=== PATIENT | female | born 1980 | race Caucasian/White ===

== ENCOUNTER 2017-06-05 22:30 | Emergency (ER) | payer OTHER ==
[2017-06-05 22:51] VITALS: BP 122/72; BMI 38.4
--- NOTE | 2017-06-06 00:10 | PDOC ---
History of Present Illness - General Chief Complaint: Asthma Stated Complaint: PAIN History Source: Patient Exam Limitations: No Limitations - History of Present Illness Travel History: No Initial Comments: 06/06/17 00:09 37 yo F with h/o renal colic c/o left sided flank pain x1 week with nausea but denies fever/chills. Pain described as 5/10 intermittent sharpness radiating to the groin. There are no alleviating or exacerbating factors. Patient denies vomiting, headaches, chest pain, shortness of breath, abdominal pains, urinary symptoms: Frequency/urgency/hesitancy, hematuria. Patient states it feels similar to her previous renal colic episodes. Patient states she's been having this for approximately one week and was hoping the pain was subsiding on its own by passing her kidney stones. Timing/Duration: reports: intermittent Quality: reports: sharpness Abdominal Pain Onset Location: reports: flank (right) Past History - Past Medical History Allergies/Adverse Reactions: Allergies Allergy/AdvReac Type Severity Reaction Status Date / Time amcinonide [From Cyclocort] Allergy Mild Hives Verified 05/26/16 03:38 cefaclor [From Ceclor] Allergy Mild Hives Verified 05/26/16 03:38 Home Medications: Ambulatory Orders Albuterol Sulfate Inhaler - [Ventolin HFA Inhaler -] 1 - 2 inh PO Q4H #1 inhaler 10/25/13 Anemia: No Asthma: Yes Cancer: No Cardiac Disorders: No CVA: No COPD: No CHF: No Dementia: No Diabetes: No GI Disorders: No Disorders: No HTN: No Hypercholesterolemia: No Kidney Stones: Yes Liver Disease: No Seizures: No Thyroid Disease: No - Surgical History Abdominal Surgery: Yes (gastric sleeve) Appendectomy: No Cardiac Surgery: No Cholecystectomy: Yes (2010) GI Surgery: Yes Lung Surgery: No Neurologic Surgery: No Orthopedic Surgery: No - Immunization History Td Vaccination: Yes Immunization Up to Date: Yes - Suicide/Smoking/Psychosocial Hx Smoking Status: No Smoking History: Never smoked Have you smoked in the past 12 months: No Number of Cigarettes Smoked Daily: 0 Hx Alcohol Use: No Drug/Substance Use Hx: No Substance Use Type: None Hx Substance Use Treatment: No Review of Systems - Review of Systems Able to Perform ROS?: Yes Comments:: 06/06/17 00:29 CONSTITUTIONAL: Absent: fever, chills, diaphoresis, generalized weakness, malaise, loss of appetite HEENT: Absent: rhinorrhea, nasal congestion, throat pain, throat swelling, difficulty swallowing, mouth swelling, ear pain, eye pain, visual Changes CARDIOVASCULAR: Absent: chest pain, loss of consciousness, palpitations, irregular heart rate, peripheral edema RESPIRATORY: Absent: cough, shortness of breath, dyspnea with exertion, orthopnea, wheezing, stridor, hemoptysis GASTROINTESTINAL: Absent: abdominal pain, abdominal distension, nausea, vomiting, diarrhea, constipation, melena, hematochezia GENITOURINARY: +right flank pain Absent: dysuria, frequency, urgency, hesitancy, hematuria, genital pain MUSCULOSKELETAL: Absent: myalgia, arthralgia, joint swelling SKIN: Absent: rash, itching, pallor HEMATOLOGIC/IMMUNOLOGIC: Absent: easy bleeding, easy bruising, lymphadenopathy, frequent infections ENDOCRINE: Absent: unexplained weight gain, unexplained weight loss, heat intolerance, cold intolerance NEUROLOGIC: Absent: headache, focal weakness or paresthesias, dizziness, unsteady gait, seizure, mental status changes, bladder or bowel incontinence PSYCHIATRIC: Absent: anxiety, depression, suicidal or homicidal ideation, hallucinations. Is the patient limited Maltese proficient: No *Physical Exam - Vital Signs Last Vital Signs Temp Pulse Resp BP Pulse Ox 122/72 94 L 06/05/17 22:49 06/05/17 22:49 - Physical Exam Comments: 06/06/17 00:29 GENERAL: Well developed, well nourished. Awake and alert. No acute distress. HEENT: Normocephalic, atraumatic. PERRLA, EOMI. No conjunctival pallor. Sclera are non- icteric. Moist mucous membranes. Oropharynx is clear. NECK: Supple. Full ROM. No JVD. Carotid pulses 2+ and symmetric, without bruits. No thyromegaly. No lymphadenopathy. CARDIOVASCULAR: Regular rate and rhythm. No murmurs, rubs, or gallops. Distal pulses are 2+ and symmetric. PULMONARY: No evidence of respiratory distress. Lungs clear to auscultation bilaterally. No wheezing, rales or rhonchi. ABDOMINAL: Soft. Non-tender. Non-distended. No rebound or guarding. No organomegaly. Normoactive bowel sounds. MUSCULOSKELETAL +right CVAT Normal range of motion at all joints. No bony deformities or tenderness. EXTREMITIES: No cyanosis. No clubbing. No edema. No calf tenderness. SKIN: Warm and dry. Normal capillary refill. No rashes. No jaundice. NEUROLOGICAL: Alert, awake, appropriate. Cranial nerves 2-12 intact. No deficits to light touch and temperature in face, upper extremities and lower extremities. No motor deficits in the in face, upper extremities and lower extremities. Normoreflexic in the upper and lower extremities. Normal speech. Toes are down- going bilaterally. Gait is normal without ataxia. PSYCHIATRIC: Cooperative. Good eye contact. Appropriate mood and affect. *DC/Admit/Observation/Transfer Diagnosis at time of Disposition: eloped - Discharge Dispostion Disposition: ELOPED - Referrals Referrals: Gary Stafford MD [Primary Care Provider] - - Patient Instructions - Post Discharge Activity
[2017-06-06 01:13] LABS: URINE APPEARANCE CLOUDY; URINE BILIRUBIN NEGATIVE (NEGATIVE); URINE BLOOD NEGATIVE (NEGATIVE); URINE COLOR LTYELLOW; URINE GLUCOSE (UA) NEGATIVE (NEGATIVE); URINE KETONE NEGATIVE (NEGATIVE); URINE NITRITE NEGATIVE (NEGATIVE); URINE PROTEIN NEGATIVE (NEGATIVE); URINE UROBILINOGEN NEGATIVE mg/dL (0.2-1.0)
[2017-06-06 01:16] LABS: HCG,QUALITATIVE URINE NEGATIVE
[2017-06-06 01:18] LABS: URINE LEUK ESTERASE 1+ (NEGATIVE)
[2017-06-06 01:20] LABS: EPI CELLS FEW /HPF (FEW); URINE BACTERIA RARE /hpf (NONE SEEN); URINE MUCUS RARE
== END 2017-06-06 01:43 | disposition left against medical advice (07) ==
LOC: JER 22:30
DX: R10.32 Left lower quadrant pain (principal); Z87.442 Personal history of urinary calculi
CPT/HCPCS: 81003; 81015; 84703; 99282-25

== ENCOUNTER 2018-03-09 11:24 | Day surgery (SDC) | payer OTHER ==
[2018-03-09 12:13] VITALS: BMI 38.7
[2018-03-09 12:45] VITALS: TEMP 98.6
--- NOTE | 2018-03-09 13:13 | OP ---
DATE OF OPERATION: 03/09/2018 SURGEON: Cathy Pedraza MD PREOPERATIVE DIAGNOSIS: Stall in weight loss after prior vertical sleeve gastrectomy. POSTOPERATIVE DIAGNOSIS: Dilated gastric pouch/sleeve. PROCEDURES: Upper endoscopy, esophagogastroduodenoscopy. SPECIMENS: None. ESTIMATED BLOOD LOSS: 0 mL. ANESTHESIA: MAC. REASON FOR PROCEDURE: This is a 37-year-old female with a vertical sleeve gastrectomy done at a different institution. She lost approximately 70 pounds but had some stall in her weight loss. To further evaluate the anatomy, an upper endoscopy was requested and scheduled. The risks and benefits of the procedure were explained. These included bleeding, infection, injury to surrounding structures including the oral cavity, esophagus, GE junction, stomach, duodenum, intestine, perforation, stricture, LA, DVT, PE, and some other complications. She understood and signed informed consent. DESCRIPTION OF PROCEDURE: A time-out was performed. The patient was placed in the left lateral decubitus position. The scope was placed into the patient's mouth and inserted into the esophagus, EG junction, stomach. The entirety of the sleeve and gastric pouch was inspected. There was noted to be some dilated at the distal aspect of the sleeve and pouch. The stomach was then suctioned and the scope removed. RECOMMENDATION: Upper GI to further evaluate anatomy and possible revision of vertical sleeve gastrectomy. CATHY PEDRAZA M.D. [id number]
[2018-03-09 13:29] VITALS: BP 107/59; PULSE 71
== END 2018-03-09 13:29 | disposition home or self-care (01) ==
LOC: JASU-ENDO 11:24
PROVIDERS: ATTEND Surgery
PROC: 0DJ08ZZ Inspection of Upper Intestinal Tract, Via Natural or Artificial Opening Endoscopic (ICD-10-PCS; principal; 2018-03-09 12:45)
DX: E66.01 Morbid (severe) obesity due to excess calories (principal); Z98.84 Bariatric surgery status; K31.89 Other diseases of stomach and duodenum
CPT/HCPCS: 84703

== ENCOUNTER 2018-11-29 09:47 | Inpatient (IN) | payer OTHER | END 2018-11-30 14:42 | disposition home or self-care (01) | LOC: FM/S 09:47 ==

== ENCOUNTER 2018-12-12 07:14 | Emergency (ER) | payer OTHER ==
[2018-12-12 07:31] VITALS: BMI 36.7
[2018-12-12] MEDS ORDERED: SODIUM CHLORIDE 1,000 ML IV STA (07:53)
[2018-12-12] MEDS ORDERED: methylPREDNISolone NA SUCC 125 MG/2 ML VIAL IVPB ONE (07:53)
[2018-12-12] MEDS ORDERED: FAMOTIDINE 20 MG/50 ML IVPB 20 MG/50 ML MG IVPB ONE ×2 (07:53→08:01)
--- NOTE | 2018-12-12 07:53 | PDOC ---
History of Present Illness - General Chief Complaint: Allergic Reaction Stated Complaint: ALLERGIC REACTION Time Seen by Provider: 12/12/18 07:31 History Source: Patient Exam Limitations: No Limitations - History of Present Illness Initial Comments: 38 yo F presents with hives since yesterday. She states she recently had a gastric sleeve operation, is on a liquid diet. She did not have any new foods. She has been consistently drinking the same protein shake throughout. No new facial products. She states that yesterday she developed itching to her forehead , so she took benadryl. Then last night she developed swelling and itching to her eyelids, again took benadryl (last dose 50 mg last night at 11pm). The swelling and itching returned this morning, so she sought evaluation. Denies SOB , throat swelling, mouth lesions. No prior similar symptoms in the past. Past History - Past Medical History Allergies/Adverse Reactions: Allergies Allergy/AdvReac Type Severity Reaction Status Date / Time amcinonide [From Cyclocort] Allergy Mild Hives Verified 12/12/18 07:25 cefaclor [From Ceclor] Allergy Mild Hives Verified 12/12/18 07:25 Home Medications: Ambulatory Orders Albuterol Sulfate Inhaler - [Ventolin HFA Inhaler -] 1 - 2 inh PO Q4H PRN Fluticasone Propion/Salmeterol [Fluticasone-Salmeterol 500-50] 1 each IH HS Famotidine [Pepcid] 20 mg PO BID #60 tablet 11/29/18 predniSONE [Deltasone -] 40 mg PO DAILY #8 tablet 12/12/18 Anemia: No Asthma: Yes Cancer: No Cardiac Disorders: No CVA: No COPD: No CHF: No Dementia: No Diabetes: No GI Disorders: No Disorders: No HTN: No Hypercholesterolemia: No Kidney Stones: Yes Liver Disease: No Seizures: No Thyroid Disease: No - Surgical History Abdominal Surgery: Yes (gastric sleeve 2014,LOST 80 LBS,COMING FOR REVISION) Appendectomy: No Cardiac Surgery: No Cholecystectomy: Yes GI Surgery: Yes Lung Surgery: No Neurologic Surgery: No Orthopedic Surgery: No - Immunization History Td Vaccination: Yes Immunization Up to Date: Yes - Suicide/Smoking/Psychosocial Hx Smoking Status: No Smoking History: Never smoked Have you smoked in the past 12 months: No Number of Cigarettes Smoked Daily: 0 Hx Alcohol Use: No Drug/Substance Use Hx: No Substance Use Type: None Hx Substance Use Treatment: No Review of Systems - Review of Systems Able to Perform ROS?: Yes Comments:: GENERAL/CONSTITUTIONAL: No fever or chills. No weakness. HEAD, EYES, EARS, NOSE AND THROAT: No change in vision. No ear pain or discharge. No sore throat. MUSCULOSKELETAL: No joint or muscle swelling or pain. No neck or back pain. SKIN: +Rash. NEUROLOGIC: No headache, vertigo, loss of consciousness, or change in strength/ sensation. ENDOCRINE: No increased thirst. No abnormal weight change. HEMATOLOGIC/LYMPHATIC: No anemia, easy bleeding, or history of blood clots. ALLERGIC/IMMUNOLOGIC: +Hives. *Physical Exam - Vital Signs Last Vital Signs Temp Pulse Resp BP Pulse Ox 98.6 F 93 H 18 110/71 99 12/12/18 07:18 12/12/18 07:18 12/12/18 07:18 12/12/18 07:18 12/12/18 07:18 - Physical Exam Comments: GENERAL: Awake, alert, and fully oriented, in no acute distress HEAD: No signs of trauma EYES: PERRLA, EOMI, sclera anicteric, conjunctiva clear ENT: Auricles normal inspection, hearing grossly normal, nares patent, oropharynx clear without exudates. Moist mucosa. No intraoral lesions NECK: Normal ROM, supple, no lymphadenopathy, JVD, or masses LUNGS: Breath sounds equal, clear to auscultation bilaterally. No wheezes, and no crackles HEART: Regular rate and rhythm, normal S1 and S2, no murmurs, rubs or gallops ABDOMEN: Soft, nontender, normoactive bowel sounds. No guarding, no rebound. No masses EXTREMITIES: Normal range of motion, no edema. No clubbing or cyanosis. No cords, erythema, or tenderness NEUROLOGICAL: Cranial nerves II through XII grossly intact. Normal speech, normal gait. Motor and sensation intact SKIN: Warm, dry, normal turgor. +Urticarial rash to the elbows, neck, forehead, and periorbital area B/L. Medical Decision Making - Medical Decision Making 12/12/18 07:53 Pt with urticarial rash, unknown precipitating factor. Will give benadryl, steroids, and pepcid, as it did not resolve with benadryl alone. Once she improves, will DC with a short course of prednisone. 12/12/18 09:43 Pt resting comfortably, hives improving. Will cont to monitor. 12/12/18 10:36 Pt reassessed. No airway involvement. Has some itching but has improved. Will cont to monitor the swelling. 12/12/18 12:06 Second dose of benadryl has helped, patient with no additional hives at this point. She still has periorbital edema, which will improve with time as the steroids take effect. Stable for DC home. She states her son will pick her up. *DC/Admit/Observation/Transfer Diagnosis at time of Disposition: Allergic reaction Qualifiers: Encounter type: initial encounter Qualified Code(s): T78.40XA - Allergy, unspecified, initial encounter - Discharge Dispostion Disposition: HOME Condition at time of disposition: Stable Decision to Admit order: No - Prescriptions Prescriptions: predniSONE [Deltasone -] 40 mg PO DAILY #8 tablet - Referrals Referrals: Gary Stafford MD [Primary Care Provider] - - Patient Instructions Printed Discharge Instructions: DI for Hives, DI for General Allergic Reactions - Post Discharge Activity
[2018-12-12] MEDS ORDERED: methylPREDNISolone NA SUCC 125 MG/2 ML VIAL ONE (08:01)
[2018-12-12 11:19] VITALS: BP 119/88; PULSE 75; TEMP 98
== END 2018-12-12 12:44 | disposition home or self-care (01) ==
LOC: JER 07:14
PROC: 3E033GC Introduction of Other Therapeutic Substance into Peripheral Vein, Percutaneous Approach (ICD-10-PCS; principal; 2018-12-12)
PROC: 3E0337Z Introduction of Electrolytic and Water Balance Substance into Peripheral Vein, Percutaneous Approach (ICD-10-PCS; 2018-12-12)
DX: T78.40XA Allergy, unspecified, initial encounter (principal); X58.XXXA Exposure to other specified factors, initial encounter; Y93.89 Activity, other specified; Y92.89 Other specified places as the place of occurrence of the external cause; Z98.84 Bariatric surgery status
CPT/HCPCS: 84703; 96361; 96365; 96375; 96376; 99282-25; J7030

== ENCOUNTER 2018-12-13 19:44 | Emergency (ER) | payer OTHER ==
[2018-12-13 19:50] VITALS: BP 119/71; PULSE 87; TEMP 98.2; BMI 36.7
[2018-12-13] MEDS ORDERED: DEXAMETHASONE SOD PHOSPHATE 10 MG/1 ML VIAL IM ONE (20:29)
[2018-12-13] MEDS ORDERED: DEXAMETHASONE SOD PHOSPHATE 10 MG/1 ML VIAL ONE (20:35)
--- NOTE | 2018-12-13 20:51 | PDOC ---
History of Present Illness - General Chief Complaint: Hives Stated Complaint: ALLERGIC REACTION Time Seen by Provider: 12/13/18 20:23 History Source: Patient Exam Limitations: Clinical Condition - History of Present Illness Initial Comments: 12/13/18 20:46 Patient with no significant past medical history present with complaint of multiple hives to face, bilateral hands, neck and forehead. Patient was seen yesterday for symptoms and discharged home on by mouth prednisone for reported vomiting after taking prednisone and feels rashes getting worse. Denies choking sensation, shortness of breath. Denies lip or tongue swelling. Patient reported has been on liquid diet since gastric bypass 3 weeks ago and has not had anything new to be causing her ALLERGIC reaction. Denies any other symptoms Timing/Duration: 24 hours Past History - Past Medical History Allergies/Adverse Reactions: Allergies Allergy/AdvReac Type Severity Reaction Status Date / Time amcinonide [From Cyclocort] Allergy Mild Hives Verified 12/12/18 07:25 cefaclor [From Ceclor] Allergy Mild Hives Verified 12/12/18 07:25 Home Medications: Ambulatory Orders Albuterol Sulfate Inhaler - [Ventolin HFA Inhaler -] 1 - 2 inh PO Q4H PRN Fluticasone Propion/Salmeterol [Fluticasone-Salmeterol 500-50] 1 each IH HS Famotidine [Pepcid] 20 mg PO BID #60 tablet 11/29/18 predniSONE [Deltasone -] 40 mg PO DAILY #8 tablet 12/12/18 Hydrocortisone 2.5% Lotion [Hytone 2.5% Lotion -] 1 applic TP BID PRN 7 Days #1 bottle 12/13/18 Anemia: No Asthma: Yes Cancer: No Cardiac Disorders: No CVA: No COPD: No CHF: No Dementia: No Diabetes: No GI Disorders: No Disorders: No HTN: No Hypercholesterolemia: No Kidney Stones: Yes Liver Disease: No Seizures: No Thyroid Disease: No - Surgical History Abdominal Surgery: Yes (gastric sleeve 2014,LOST 80 LBS,COMING FOR REVISION) Appendectomy: No Cardiac Surgery: No Cholecystectomy: Yes GI Surgery: Yes Lung Surgery: No Neurologic Surgery: No Orthopedic Surgery: No - Immunization History Td Vaccination: Yes Immunization Up to Date: Yes - Suicide/Smoking/Psychosocial Hx Smoking Status: No Smoking History: Unknown if ever smoked Have you smoked in the past 12 months: No Number of Cigarettes Smoked Daily: 0 Hx Alcohol Use: No Drug/Substance Use Hx: No Substance Use Type: None Hx Substance Use Treatment: No Review of Systems - Review of Systems Able to Perform ROS?: Yes Is the patient limited Mongolian proficient: No Constitutional: No: Weakness HEENTM: No: Symptoms Reported Respiratory: No: Symptoms reported, Shortness of Breath, SOB with Exertion, SOB at Rest Cardiac (ROS): No: Symptoms Reported, Irregular Heart Rate, Palpitations ABD/GI: No: Nausea, Vomiting Integumentary: Yes: Symptoms Reported, See HPI, Pruritus, Rash Neurological: No: Dizziness All Other Systems: Reviewed and Negative *Physical Exam - Vital Signs Last Vital Signs Temp Pulse Resp BP Pulse Ox 98.2 F 87 20 119/71 97 12/13/18 19:47 12/13/18 19:47 12/13/18 19:47 12/13/18 19:47 12/13/18 19:47 - Physical Exam General Appearance: Yes: Nourished, Appropriately Dressed. No: Apparent Distress ED Treatment Course - Medications Given in the ED: ED Medications Discontinued Medications Generic Name Dose Route Start Last Admin Trade Name Freq PRN Reason Stop Dose Admin Dexamethasone Sodium Phosphate 10 mg 12/13/18 20:29 12/13/18 20:44 Decadron Injection - IM 12/13/18 20:30 10 mg ONCE ONE Administration Diphenhydramine HCl 50 mg 12/13/18 20:29 12/13/18 20:44 Benadryl Injection - IM 12/13/18 20:30 50 mg ONCE ONE Administration Medical Decision Making - Medical Decision Making 12/13/18 20:49 Patient with no significant past medical history present with complaint of multiple hives to face, bilateral hands, neck and forehead. Patient was seen yesterday for symptoms and discharged home on by mouth prednisone for reported vomiting after taking prednisone and feels rashes getting worse. Denies choking sensation, shortness of breath. Denies lip or tongue swelling. Patient reported has been on liquid diet since gastric bypass 3 weeks ago and has not had anything new to be causing her ALLERGIC reaction. Denies any other symptoms Exam significant for multiple urticarial rash, anterior neck, posterior side of bilateral ears, forearm bilateral hands and fingers without excoriations. Symptoms likely ALLERGIC dermatitis. Patient no acute distress. Decadron 10 mg by mouth IM and Benadryl 50 mg IM ordered for ALLERGIC reaction. Patient be discharged home to continue home prednisone and Pepcid for antihistamine with strict follow-up. Referral to dermatology given for follow-up *DC/Admit/Observation/Transfer Diagnosis at time of Disposition: Allergic reaction Qualifiers: Encounter type: subsequent encounter Qualified Code(s): T78.40XD - Allergy, unspecified, subsequent encounter - Discharge Dispostion Disposition: HOME Condition at time of disposition: Stable Decision to Admit order: No - Prescriptions Prescriptions: Hydrocortisone 2.5% Lotion [Hytone 2.5% Lotion -] 1 applic TP BID PRN 7 Days #1 bottle PRN Reason: rash - Referrals Referrals: Gary Stafford MD [Primary Care Provider] - Jennifer Rod MD [Staff Physician] - - Patient Instructions Additional Instructions: Continue with home prednisone as prescribed. Take home Pepcid twice a for antihistamine. Use prescribed hydrocortisone cream as needed for rash., To emergency room if worsening symptoms or shortness of breath or choking sensation otherwise follow-up referred dermatology - Post Discharge Activity
== END 2018-12-13 20:57 | disposition home or self-care (01) ==
LOC: JERFT 19:44
PROC: 3E023GC Introduction of Other Therapeutic Substance into Muscle, Percutaneous Approach (ICD-10-PCS; principal; 2018-12-13)
PROC: 3E0233Z Introduction of Anti-inflammatory into Muscle, Percutaneous Approach (ICD-10-PCS; 2018-12-13)
DX: L50.0 Allergic urticaria (principal); T78.40XD Allergy, unspecified, subsequent encounter
CPT/HCPCS: 96372; 99281-25; J1100

== ENCOUNTER 2020-03-03 01:31 | Emergency (ER) | payer OTHER ==
[2020-03-03 02:00] VITALS: TEMP 99; BMI 32.5
--- NOTE | 2020-03-03 02:06 | PDOC ---
Attending Attestation - Resident Resident Name: Kate Taylor - ED Attending Attestation I have performed the following: I have examined & evaluated the patient, The case was reviewed & discussed with the resident, I agree w/resident's findings & plan - HPI HPI: 03/03/20 03:03 Pt comes with abdominal pain - Physicial Exam PE: 03/03/20 03:04 Normal vitals afebrile Heart RRR lungs CTAB abd:soft NT ND flank:no pain neuro:normal exam ext:normal 03/03/20 21:25 Pt doesn't need further imaging or testing - Medical Decision Making 03/03/20 02:43 UA normal Hb is low MCV is low. Pt states that her HB is always low. 03/03/20 03:03 chemistry is normal 03/03/20 03:16 Pt tells me that she eats no fruits and no veggies. Likely constipated. 03/03/20 21:26 Pt has normal labs and she will be sent home with PMD outpatient f/u as needed. Discharge - Discharge Information Problems reviewed: Yes Clinical Impression/Diagnosis: Abdominal pain Qualifiers: Abdominal location: unspecified location Qualified Code(s): R10.9 - Unspecified abdominal pain Condition: Improved Disposition: HOME - Follow up/Referral Referrals: Gary Stafford MD [Primary Care Provider] - - Patient Discharge Instructions Patient Printed Discharge Instructions: DI for Abdominal Pain-Adult, DI for Iron Deficiency Anemia-Adult Additional Instructions: You were seen with R sided abdominal pain. Your labs are unconcerning, and your pain resolved without intervention. You were found to be anemic. Please ensure that you eat an iron rich diet. Follow up with your primary care doctor within one week. Return to the ER if you develop new or worsening symptoms. - Post Discharge Activity
--- NOTE | 2020-03-03 02:07 | PDOC ---
History of Present Illness - General Chief Complaint: Pain, Acute Stated Complaint: PAIN Time Seen by Provider: 03/03/20 01:46 - History of Present Illness Initial Comments: HPI: 03/03/20 02:03 39 yo F PMH asthma, gastric sleeve s/p revision 2019 (went from 300 to 190 lbs), s/p cholecystectomy 20+ years ago, C-sections X2, tubal ligation, L sided kidney stones requiring lithotripsy in the past, presenting from home with R sided abd pain and urinary frequency. States that she has had sharp R sided abd pain for the past week, more severe over the past 3 days (12/15, sharp), developed urinary frequency and odor without dysuria or hematuria today, prompting her to come in. Endorses nausea, one episode of vomiting yesterday. Has taken ibuprofen and acetaminophen with some relief. Denies LOWERY, CP, SOB, fevers/chills, constipatio n/diarrhea. LMP 02/11/2020. ROS: GENERAL/CONSTITUTIONAL: denies fever, chills, diaphoresis, generalized weakness, malaise, loss of appetite, weight change HEAD, EYES, EARS, NOSE AND THROAT: denies rhinorrhea, nasal congestion, throat pain, throat swelling NEUROLOGIC: denies headache, focal weakness, dizziness, unsteady gait, mental status changes, bladder or bowel incontinence CARDIOVASCULAR: denies chest pain, syncope, palpitations, irregular heart rate, lightheadedness, peripheral edema RESPIRATORY: denies cough, shortness of breath, dyspnea with exertion, wheezing GASTROINTESTINAL: endorses abdominal pain, nausea, vomiting. Denies abdominal distension, diarrhea, constipation, melena, hematochezia GENITOURINARY: endorses frequency. Denies dysuria, hematuria, flank pain, genital pain MUSCULOSKELETAL: denies myalgia, arthralgia, joint swelling, back pain, neck pa in SKIN: denies rash, itching, pallor HEMATOLOGIC/IMMUNOLOGIC: denies easy bleeding, easy bruising, lymphadenopathy, frequent infections ENDOCRINE: denies unexplained weight gain, unexplained weight loss, heat intolerance, cold intolerance PSYCHIATRIC: denies anxiety, depression, suicidal or homicidal ideation, hallucinations PE: Gen: well-developed, well-nourished, NAD Neuro: AAOX4, CN II-XII intact HEENT: atraumatic, normocephalic Neck: trachea midline, supple CV: regular rate, regular rhythm, no murmurs, rubs, or gallops Pulm: CTA b/l, no wheezing Abd: soft, non-distended, R mid abdominal tenderness MSK: full ROM, intact pulses Extr: no edema, no deformities Skin: warm, dry MDM: Concern for pancreatitis v gastritis v UTI v kidney stone. - CBC, CMP - UA - serum preg - lipase - reassess - consider CT abd/pelvis w/ contrast considering extensive surgical history v non con for stone, depending on UA results 03/03/20 02:33 Hgb 7.9, UA appears negative. Likely iron deficiency anemia; patient endorses eating very few fruits or vegetables. Will plan CT abd/pelvis with IV and PO contrast once Cr comes back. 03/03/20 02:44 Serum preg negative. 03/03/20 03:02 Cr wnl, will give PO and IV contrast, get CT. 03/03/20 03:16 Patient reassessed and now completely non-tender. Labs unconcerning. Will instead dc for further outpatient management. Past History - Medical History Allergies/Adverse Reactions: Allergies Allergy/AdvReac Type Severity Reaction Status Date / Time amcinonide [From Cyclocort] Allergy Mild Hives Verified 03/03/20 02:00 cefaclor [From Ceclor] Allergy Mild Hives Verified 03/03/20 02:00 Home Medications: Ambulatory Orders Albuterol Sulfate Inhaler - [Ventolin HFA Inhaler -] 1 - 2 inh PO Q4H PRN 0 11/22/18 Fluticasone/Salmeterol [Advair Hfa 115-21 Mcg Inhaler] 1 inh PO BID 11/26/19 Ondansetron [Zofran *Odt*] 4 mg SL TID PRN #12 od.tablet 11/27/19 Anemia: No Asthma: Yes Cancer: No Cardiac Disorders: No CVA: No COPD: No CHF: No Dementia: No Diabetes: No GI Disorders: No Disorders: No HTN: No Hypercholesterolemia: No Kidney Stones: Yes Liver Disease: No Seizures: No Thyroid Disease: No - Surgical History Abdominal Surgery: Yes (gastric sleeve 2014,LOST 80 LBS,COMING FOR REVISION) Appendectomy: No Cardiac Surgery: No Cholecystectomy: Yes GI Surgery: Yes Lung Surgery: No Neurologic Surgery: No Orthopedic Surgery: No - Reproductive History Is Patient Now?: No - Immunization History Td Vaccination: Yes TDAP Vaccination: Yes Immunization Up to Date: Yes - Psycho-Social/Smoking History Smoking Status: No Smoking History: Never smoked Have you smoked in the past 12 months: No Number of Cigarettes Smoked Daily: 0 Information on smoking cessation initiated: No - Substance Abuse Hx (Audit-C & DAST Scrn) How often the patient has a drink containing alcohol: Never Score: In Men: 4 or > Positive; In Women: 3 or > Positive: 0 Screen Result (Pos requires Nsg. Audit-10AR): Negative In the last yr the pt used illegal drug/Rx for NonMed reason: No Score: Yes response is considered Positive: 0 Screen Result (Positive result requires Nsg. DAST-10): Negative *Physical Exam - Vital Signs Last Vital Signs Temp Pulse Resp BP Pulse Ox 99.0 F 76 18 120/83 100 03/03/20 01:57 03/03/20 01:57 03/03/20 01:57 03/03/20 01:57 03/03/20 01:57 ED Treatment Course - LABORATORY CBC & Chemistry Diagram: 03/03/20 02:08 03/03/20 02:08 Discharge - Discharge Information Problems reviewed: Yes Clinical Impression/Diagnosis: Abdominal pain Qualifiers: Abdominal location: unspecified location Qualified Code(s): R10.9 - Unspecified abdominal pain Condition: Improved Disposition: HOME - Admission No - Follow up/Referral Referrals: Gary Stafford MD [Primary Care Provider] - - Patient Discharge Instructions Patient Printed Discharge Instructions: DI for Abdominal Pain-Adult, DI for Iron Deficiency Anemia-Adult Additional Instructions: You were seen with R sided abdominal pain. Your labs are unconcerning, and your pain resolved without intervention. You were found to be anemic. Please ensure that you eat an iron rich diet. Follow up with your primary care doctor within one week. Return to the ER if you develop new or worsening symptoms. - Post Discharge Activity
[2020-03-03] MEDS ORDERED: SODIUM CHLORIDE 1,000 ML IV STA (02:17)
[2020-03-03] MEDS ORDERED: ACETAMINOPHEN 1000 MG/100 ML VIAL (NON FORMULARY) IVPB ONE (02:17)
[2020-03-03 02:21] LABS: URINE APPEARANCE CLEAR; URINE BILIRUBIN NEGATIVE (NEGATIVE); URINE COLOR YELLOW; URINE GLUCOSE (UA) NEGATIVE (NEGATIVE); URINE KETONE NEGATIVE (NEGATIVE); URINE LEUK ESTERASE NEGATIVE (NEGATIVE); URINE NITRITE NEGATIVE (NEGATIVE); URINE PROTEIN NEGATIVE (NEGATIVE)
[2020-03-03 02:22] LABS: HEMATOCRIT 26.3 % (32.4-45.2); HEMOGLOBIN 7.9 GM/dL (10.7-15.3); MCHC 30.2 g/dl (32.0-36.0); MEAN CELL VOLUME 58.9 fl (80-96); MEAN PLT VOLUME 9.1 fl (7.5-11.1); PLATELET COUNT 310 K/MM3 (134-434); RBC 4.46 M/mm3 (3.60-5.2); RDW 20.9 % (11.6-15.6); WHITE BLOOD COUNT 7.4 K/mm3 (4.0-10.0)
[2020-03-03 02:28] LABS: MCH 17.8 pg (25.7-33.7)
[2020-03-03] MEDS ORDERED: KETOROLAC TROMETHAMINE 30 MG/1 ML VIAL IVPUSH ONE (02:29)
[2020-03-03] MEDS ORDERED: ACETAMINOPHEN INJECTION 100 ML IVPB ONE (02:30)
[2020-03-03] MEDS ORDERED: KETOROLAC TROMETHAMINE 30 MG/1 ML VIAL ONE (02:38)
[2020-03-03 02:59] LABS: ALBUMIN 3.3 g/dl (3.4-5.0); BILIRUBIN,TOTAL 0.4 mg/dL (0.2-1); BLOOD UREA NITROGEN 20.4 mg/dL (7-18); CALCIUM 8.6 mg/dL (8.5-10.1); CREATININE 0.7 mg/dL (0.55-1.3); POTASSIUM 4.1 mmol/L (3.5-5.1); TOT PROT 6.9 g/dl (6.4-8.2)
[2020-03-03 04:13] VITALS: BP 118/78; PULSE 68
[2020-03-03 07:59] LABS: ANISOCYTOSIS 3+
[2020-03-03 08:00] LABS: PLATELET ESTIMATE ADEQUATE
== END 2020-03-03 04:16 | disposition home or self-care (01) ==
LOC: JER 01:31
PROC: 3E0333Z Introduction of Anti-inflammatory into Peripheral Vein, Percutaneous Approach (ICD-10-PCS; principal; 2020-03-03)
PROC: 3E033GC Introduction of Other Therapeutic Substance into Peripheral Vein, Percutaneous Approach (ICD-10-PCS; 2020-03-03)
PROC: 3E0337Z Introduction of Electrolytic and Water Balance Substance into Peripheral Vein, Percutaneous Approach (ICD-10-PCS; 2020-03-03)
DX: R10.9 Unspecified abdominal pain (principal)
CPT/HCPCS: 36415; 80053; 81003; 83690; 84703; 85025; 87086; 99285-25; J0131

== ENCOUNTER 2020-03-12 04:54 | Day surgery (SDC) | payer OTHER ==
--- OUTSIDE RECORDS SUMMARY | 2020-03-02 13:54 | XMS ---
:1980 [facility] Providers Name Role Phone Chumaceiro Unavailable Unavailable Chumaceiro Unavailable Unavailable Chumaceiro Unavailable Unavailable Chumaceiro Unavailable Unavailable Chumaceiro Unavailable Unavailable Chumaceiro Unavailable Unavailable Chumaceiro Unavailable Unavailable Chumaceiro Unavailable Unavailable Re-disclosure Warning The records that you are about to access may contain information from federally- assisted alcohol or drug abuse programs. If such information is present, then the following federally mandated warning applies: This information has been disclosed to you from records protected by federal confidentiality rules (42 CFR part 2). The federal rules prohibit you from making any further disclosure of this information unless further disclosure is expressly permitted by the written consent of the person to whom it pertains or as otherwise permitted by 42 CFR part 2. A general authorization for the release of medical or other information is NOT sufficient for this purpose. The Federal rules restrict any use of the information to criminally investigate or prosecute any alcohol or drug abuse patient.The records that you are about to access may contain highly sensitive health information, the redisclosure of which is protected by Article 27-F of the [facility] Public Health law. If you continue you may haveaccess to information: Regarding HIV / AIDS; Provided by facilities licensed or operated by the [facility] Office of Mental Health; or Provided by the [facility] Office for People With Developmental Disabilities. If such information is present, then the following [facility] mandated warning applies: This information has been disclosed to you from confidential records which are protected by state law. State law prohibits you from making any further disclosure of this information without the specific written consent of the person to whom it pertains, or as otherwise permitted by law. Any unauthorized further disclosure in violation of state law may result in a fine or assisted sentence or both. A general authorization for the release of medical or other information is NOT sufficient authorization for further disclosure. Allergies and Adverse Reactions Type Description Substance Reaction Status Data Source(s ) Drug allergy CECLOR CECLOR:[id number] Active MEDGEN ([facility]) Encounters Encounter Providers Location Date Indications Data Source(s ) Attender: Gary 02/02/2020 MEDGEN ([facility] Chumaceiro 12:00:00 AM [facility], ) EDT Office Medications Medication Brand Start Product Dose Route Administrative Pharmacy [facility] Indications Reaction Description Data Name Date Form Instructions Instructions Source(s) Escitalopra ESCITA 06/30/ TABLET 30 complet ESCI TALOPRAM MEDGEN (St m 10 MG LOPRAM 2019 ed [facility] Oral Tablet :90197 12:00: Medi shivani, ESCITALOPRA 2 00 AM PC) [id number] EST ropinirole ROPINI 03/28/ TABLET 30 complet ROPIN IROLE MEDGEN (St 0.25 MG ROLE:3 2018 ed [facility] Oral Tablet 01941 12:00: Medic al, ROPINIROLE: 00 AM PC) 530888 EDT ropinirole ROPINI 03/28/ complet ROPINIR OLE MEDGEN (St 0.25 MG ROLE:3 2018 ed G[facility] Oral Tablet 99131 12:00: Medic al, ROPINIROLE: 00 AM PC) 229247 EDT Albuterol 1 ALBUTE 03/28/ complet ALBUTE ROL MEDGEN (St MG/ML ROL:2018 ed [facility] Inhalant 5314 12:00: Medical, Solution 00 AM ) ALBUTEROL:2 EDT 51715 Famotidine FAMOTI 03/28/ TABLET 30 complet FAMOT IDINE MEDGEN (St 40 MG Oral DINE:2 2019 ed [facility] Tablet 66786 12:00: Medical, FAMOTIDINE: 00 AM PC) 293002 EDT Fluticasone ADVAIR 05/20/ POWDER 3 complet ADVA IR MEDGEN (St propionate DISKUS 2019 ed DISKUS [facility] 0.5 :48836 12:00: Medical, MG/ACTUAT / 91 00 AM PC) salmeterol EDT 0.05 MG/ACTUAT Dry Powder Inhaler [Advair] ADVAIR DISKUS:[id number] [id number] montelukast PAULETTE 08/09/ TABLET 30 complet TAMMY ELUKAST MEDGEN (St 10 MG Oral UKAST: 2019 ed [facility] Tablet [id number] 12:00: Medical, MONTELUKAST 00 AM PC) :[id number] EST Albuterol VENTOL 08/09/ AEROSOL 1 complet BETH EMILIANO HFA MEDGEN (St 0.09 IN 2019 ed [facility] MG/ACTUAT HFA:13 12:00: Medica l, Metered 56704 00 AM PC) Dose EST Inhaler [Ventolin] VENTOLIN HFA:[id number] Melatonin 3 MELATO 30/ TABLET 30 complet ECHO TONIN MEDGEN (St MG Oral MIRIAN:19 2017 ed [facility] Tablet 9163 12:00: Medical, MELATONIN:1 00 AM PC) 27371 EDT Prednisone predni 2 complet Jose Raul t 20 MG Oral SONE ed Kait Tablet 20 mg Medical predniSONE Tablet Center 20 mg , Tablet, Ordere Ordered By: d By: geneva Mondragon MDDirection SaintJ s: 2 tablet izzy, oral daily MDDire ctions : 2 tablet oral daily Zolpidem zolpid complet Saint tartrate 5 em 5 ed Kait MG Oral mg Medical Tablet Tablet Center zolpidem 5 mg Tablet 200 ACTUAT albute complet ProAir HF A Saint Albuterol rol ed Kait 0.09 sulfat Medical MG/ACTUAT e Center Metered (ProAi Dose r HFA) Inhaler 90 mcg [ProAir] HFA albuterol Aeroso sulfate l (ProAir Inhale HFA) 90 mcg r HFA Aerosol Inhaler isoniazid isonia complet Saint 300 MG Oral zid ed Kait Tablet 300 mg Medical isoniazid Tablet Center 300 mg Tablet fluticasone complet Saint 50 ed Kait mcg/actuati Medical on Center spray,suspe nsion 14 ACTUAT flutic complet Advair Faisal nt Fluticasone asone- ed Diskus Jatin phs propionate salmet Medical 0.25 emil Center MG/ACTUAT / (Advai salmeterol r 0.05 Diskus MG/ACTUAT ) 250 Dry Powder mcg-50 Inhaler mcg/Do [Advair] se fluticasone bliste -salmeterol r with (Advair device Diskus) 250 mcg-50 mcg/Dose blister with device Insurance Providers Payer name Policy type Policy ID Covered Covered libertarian's Policy P ciarra / Coverage libertarian ID relationship to Ramírez Inf ormation type ramírez [employer]USTIN [employer] [id number] SP [id number] NON CAP [place] [id number] 1 [id number] HEALTHCARE COMMUNITY PLAN [facility] [id number] 1 [id number] [facility] [id number] ESSENTIAL PLAN 1 2 Problems, Conditions, and Diagnoses Code Display Name Description Problem Type Effective Data Sour ce(s) Dates N63.11 Unspecified lump in UNSPECIFIED LUMP Problem 02/02/2020 MEDGEN (St the right breast, IN THE RIGHT 12:00:00 AM [facility] upper outer BREAST, UPPER T Medical, P C) quadrant OUTER QUADRANT F43.21 Adjustment disorder ADJUSTMENT Problem 06/30/2019 MEDGE N (St with depressed mood DISORDER WITH 12:00:00 AM [facility] DEPRESSED MOOD [facility] Medical, P C) D50.9 Iron deficiency IRON DEFICIENCY Problem 03/28/2019 MEDG EN (St anemia, unspecified ANEMIA, 12:00:00 AM [facility] UNSPECIFIED T Medical, ) J45.30 Mild persistent MILD PERSISTENT Problem 03/28/2019 MEDG EN (St asthma, ASTHMA, 12:00:00 AM [facility] uncomplicated UNCOMPLICATED T Medical, ) G47.01 Insomnia due to INSOMNIA DUE TO Problem 03/28/2019 MEDG EN (St medical condition MEDICAL CONDITION 12:00:00 AM [facility], ) K21.9 Gastro-esophageal GASTRO-ESOPHAGEAL Problem 03/28/2019 MEDGEN (St reflux disease REFLUX DISEASE 12:00:00 AM [facility] without esophagitis WITHOUT EDT Medic al, ) ESOPHAGITIS G25.81 Restless legs RESTLESS LEGS Problem 03/28/2019 MEDGEN ( St syndrome SYNDROME 12:00:00 AM [facility], ) E66.9 Obesity, OBESITY, Problem 12/15/2018 MEDGEN (St unspecified UNSPECIFIED 12:00:00 AM [facility], ) 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 12/15/2018 MEDGEN (St urticaria URTICARIA 12:00:00 AM [facility], ) Z01.818 Encounter for other ENCOUNTER FOR Problem 11/08/2018 ME DGEN (St preprocedural OTHER 12:00:00 AM [facility] examination PREPROCEDURAL EDT Medical, P C) EXAMINATION J45.41 Moderate persistent MODERATE Problem 10/25/2018 MEDGE N (St asthma with (acute) PERSISTENT ASTHMA 12:00:00 AM [facility] exacerbation WITH (ACUTE) EDT Medical, P C) EXACERBATION E55.9 Vitamin D VITAMIN D Problem 10/18/2018 MEDGEN (St deficiency, DEFICIENCY, 12:00:00 AM [facility] unspecified UNSPECIFIED ED Medical, ) D50.8 Other iron OTHER IRON Problem 10/18/2018 MEDGEN (St deficiency anemias DEFICIENCY ANEMIAS 12:00:00 AM [facility], ) M25.00 Hemarthrosis, HEMARTHROSIS, Problem 10/18/2018 MEDGEN ( St unspecified joint UNSPECIFIED JOINT 12:00:00 AM [facility], ) M79.2 Neuralgia and NEURALGIA AND Problem 08/09/2018 MEDGEN ( St neuritis, NEURITIS, 12:00:00 AM [facility] unspecified UNSPECIFIED [facility], ) E66.01 Morbid (severe) MORBID (SEVERE) Problem 08/09/2018 MEDG EN (St obesity due to OBESITY DUE TO 12:00:00 AM [facility] excess calories EXCESS CALORIES EST [facility], ) E66.8 Other obesity OTHER OBESITY Problem 08/09/2018 MEDGEN ( St 12:00:00 AM [facility], ) J45.40 Moderate persistent MODERATE Problem 08/09/2018 MEDGE N (St asthma, PERSISTENT ASTHMA, 12:00:00 AM [facility] uncomplicated UNCOMPLICATED EST Medical, ) G47.33 Obstructive sleep OBSTRUCTIVE SLEEP Problem 08/09/2018 MEDGEN (St apnea (adult) APNEA (ADULT) 12:00:00 AM [facility] (pediatric) (PEDIATRIC) [facility], ) G47.30 Sleep apnea, SLEEP APNEA, Problem 08/09/2018 MEDGEN (St unspecified UNSPECIFIED 12:00:00 AM [facility], ) B35.1 Tinea unguium TINEA UNGUIUM Problem 08/09/2018 MEDGEN ( St 12:00:00 AM [facility], ) 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/06/2018 MEDGEN (St tuberculosis OF TUBERCULOSIS 12:00:00 AM [facility], ) J45.20 Mild intermittent MILD INTERMITTENT Problem 04/06/2018 MEDGEN (St asthma, ASTHMA, 12:00:00 AM [facility] uncomplicated UNCOMPLICATED [facility] Medical, ) G47.00 Insomnia, INSOMNIA, Problem 04/06/2018 MEDGEN (St unspecified UNSPECIFIED 12:00:00 AM [facility], ) F41.9 Anxiety disorder, ANXIETY DISORDER, Problem 04/06/2018 MEDGEN (St unspecified UNSPECIFIED 12:00:00 AM [facility], ) Surgeries/Procedures Procedure Description Date Indications Data Source(s) Documentation of current 02/02/2020 MED GEN ([facility] medications (procedure) 12:00:00 AM HANNAH yin, ) OFFICE OUTPATIENT VISIT 02/02/2020 MEDG EN ([facility] 15 [facility]00[facility] Documentation of current 08/08/2019 MED GEN ([facility] medications (procedure) 12:00:00 AM EST Sam yin, ) Documentation of current 08/08/2019 MED GEN ([facility] medications (procedure) 12:00:00 AM EST Sam yin, ) OFFICE OUTPATIENT VISIT 08/08/2019 MEDG EN ([facility] 15 MINUTES 12:00:00 AM [facility], ) Documentation of current 06/30/2019 MED GEN ([facility] medications (procedure) 12:00:00 AM EST Sam yin, ) Documentation of current 06/30/2019 MED GEN ([facility] medications (procedure) 12:00:00 AM EST Sam yin, PC) Documentation of current 06/30/2019 MED GEN ([facility] medications (procedure) 12:00:00 AM EST Sam yin, PC) Documentation of current 06/30/2019 MED GEN ([facility] medications (procedure) 12:00:00 AM EST Sam yin, PC) Documentation of current 06/30/2019 MED GEN ([facility] medications (procedure) 12:00:00 AM EST Sam yin, PC) OFFICE OUTPATIENT VISIT 06/30/2019 MEDG EN ([facility] 15 MINUTES 12:00:00 AM NICK Veras, PC) Documentation of current 03/28/2019 MED GEN ([facility] medications (procedure) 12:00:00 AM EDT Sam yin, PC) Documentation of current 03/28/2019 MED GEN ([facility] medications (procedure) 12:00:00 AM EDT Sam yin, PC) Documentation of current 03/28/2019 MED GEN ([facility] medications (procedure) 12:00:00 AM EDT Sam yin, PC) Documentation of current 03/28/2019 MED GEN ([facility] medications (procedure) 12:00:00 AM EDT Sam yin, PC) Documentation of current 03/28/2019 MED GEN ([facility] medications (procedure) 12:00:00 AM EDT Sam yin, PC) Documentation of current 03/28/2019 MED GEN ([facility] medications (procedure) 12:00:00 AM EDT Sam yin, PC) Documentation of current 03/28/2019 MED GEN ([facility] medications (procedure) 12:00:00 AM EDT Sam yin, PC) Documentation of current 03/28/2019 MED GEN ([facility] medications (procedure) 12:00:00 AM EDT aSm yin, PC) Documentation of current 03/28/2019 MED GEN ([facility] medications (procedure) 12:00:00 AM EDT Sam yin, PC) Documentation of current 03/28/2019 MED GEN ([facility] medications (procedure) 12:00:00 AM EDT Sam yin, PC) Documentation of current 03/28/2019 MED GEN ([facility] medications (procedure) 12:00:00 AM EDT Sam yin, PC) Documentation of current 03/28/2019 MED GEN ([facility] medications (procedure) 12:00:00 AM EDT edical, PC) Documentation of current 03/28/2019 MED GEN ([facility] medications (procedure) 12:00:00 AM EDT edical, PC) Documentation of current 03/28/2019 MED GEN ([facility] medications (procedure) 12:00:00 AM EDT edical, PC) Documentation of current 03/28/2019 MED GEN ([facility] medications (procedure) 12:00:00 AM EDT edical, PC) Documentation of current 03/28/2019 MED GEN ([facility] medications (procedure) 12:00:00 AM EDT edical, PC) OFFICE OUTPATIENT VISIT 03/28/2019 MEDG EN ([facility] 25 MINUTES 12:00:00 AM [facility] Medical, ) BRIEF EMOTIONAL BEHAVIOR 03/28/2019 MED GEN ([facility] 12:00:00 AM ED Medical, ) COLLECTION VENOUS BLOOD 03/28/2019 MEDG EN ([facility] VENIPUNCTURE 12:00:00 AM [facility] Medical, ) OFFICE OUTPATIENT VISIT 12/15/2018 MEDG EN ([facility] 15 MINUTES 12:00:00 AM ED Medical, ) Documentation of current 11/08/2018 MED GEN ([facility] medications (procedure) 12:00:00 AM EDT elizabethical, ) Documentation of current 11/08/2018 MED GEN ([facility] medications (procedure) 12:00:00 AM EDT elizabethical, PC) Documentation of current 11/08/2018 MED GEN ([facility] medications (procedure) 12:00:00 AM EDT edical, PC) Documentation of current 11/08/2018 MED GEN ([facility] medications (procedure) 12:00:00 AM EDT edical, PC) OFFICE OUTPATIENT VISIT 11/08/2018 MEDG EN ([facility] 25 MINUTES 12:00:00 AM [facility] Medical, ) Documentation of current 10/25/2018 MED GEN ([facility] medications (procedure) 12:00:00 AM EDT edical, PC) Documentation of current 10/25/2018 MED GEN ([facility] medications (procedure) 12:00:00 AM EDT Sam yin, ANA) Documentation of current 10/25/2018 MED GEN ([facility] medications (procedure) 12:00:00 AM EDT Sam yin PC) Documentation of current 10/25/2018 MED GEN ([facility] medications (procedure) 12:00:00 AM EDT Sam yin PC) Documentation of current 10/25/2018 MED GEN ([facility] medications (procedure) 12:00:00 AM EDT Sam yni PC) Documentation of current 10/25/2018 MED GEN ([facility] medications (procedure) 12:00:00 AM EDT Sam yin, PC) Documentation of current 10/25/2018 MED GEN ([facility] medications (procedure) 12:00:00 AM EDT Sam yin, ANA) OFFICE OUTPATIENT VISIT 10/25/2018 MEDG EN ([facility] 25 MINUTES 12:00:00 AM ED Medical, PC) OFFICE OUTPATIENT VISIT 10/18/2018 MEDG EN ([facility] 15 MINUTES 12:00:00 AM ED Medical, PC) COLLECTION VENOUS BLOOD 10/18/2018 MEDG EN ([facility] VENIPUNCTURE 12:00:00 AM ED Medical, PC) Documentation of current 08/09/2018 MED GEN ([facility] medications (procedure) 12:00:00 AM ANA Parnell) Documentation of current 08/09/2018 MED GEN ([facility] medications (procedure) 12:00:00 AM NICK yin PC) Documentation of current 08/09/2018 MED GEN ([facility] medications (procedure) 12:00:00 AM NICK yin PC) Documentation of current 08/09/2018 MED GEN ([facility] medications (procedure) 12:00:00 AM NICK yin PC) Documentation of current 08/09/2018 MED GEN ([facility] medications (procedure) 12:00:00 AM NICK yin, PC) Documentation of current 08/09/2018 MED GEN ([facility] medications (procedure) 12:00:00 AM NICK yin, PC) Documentation of current 08/09/2018 MED GEN ([facility] medications (procedure) 12:00:00 AM NICK yin, PC) Documentation of current 08/09/2018 MED GEN ([facility] medications (procedure) 12:00:00 AM NICK yin, PC) Documentation of current 08/09/2018 MED GEN ([facility] medications (procedure) 12:00:00 AM NICK yin, PC) Documentation of current 08/09/2018 MED GEN ([facility] medications (procedure) 12:00:00 AM NICK yin, PC) Documentation of current 08/09/2018 MED GEN ([facility] medications (procedure) 12:00:00 AM NICK yin, PC) Documentation of current 08/09/2018 MED GEN ([facility] medications (procedure) 12:00:00 AM NICK yin, PC) Documentation of current 08/09/2018 MED GEN ([facility] medications (procedure) 12:00:00 AM NICK yin, PC) Documentation of current 08/09/2018 MED GEN ([facility] medications (procedure) 12:00:00 AM NICK yin, PC) Documentation of current 08/09/2018 MED GEN ([facility] medications (procedure) 12:00:00 AM NICK yin, PC) Documentation of current 08/09/2018 MED GEN ([facility] medications (procedure) 12:00:00 AM NICK yin, PC) Documentation of current 08/09/2018 MED GEN ([facility] medications (procedure) 12:00:00 AM NICK yin, PC) Documentation of current 08/09/2018 MED GEN ([facility] medications (procedure) 12:00:00 AM NICK yin, PC) Documentation of current 08/09/2018 MED GEN ([facility] medications (procedure) 12:00:00 AM NICK yin, PC) Documentation of current 08/09/2018 MED GEN ([facility] medications (procedure) 12:00:00 AM NICK yin, PC) OFFICE OUTPATIENT VISIT 08/09/2018 MEDG EN ([facility] 25 MINUTES 12:00:00 AM EST Medical, PC) OFFICE OUTPATIENT NEW 20 08/09/2018 MED GEN ([facility] MINUTES 12:00:00 AM EST Medical, PC) Documentation of current 04/09/2018 MED GEN ([facility] medications (procedure) 12:00:00 AM HANNAH yin, PC) Documentation of current 04/09/2018 MED GEN ([facility] medications (procedure) 12:00:00 AM EDT [facility], ) Documentation of current 04/09/2018 MED GEN ([facility] medications (procedure) 12:00:00 AM EDT [facility]) Documentation of current 04/09/2018 MED GEN ([facility] medications (procedure) 12:00:00 AM T [facility]) Documentation of current 04/09/2018 MED GEN ([facility] medications (procedure) 12:00:00 AM T [facility]) OFFICE OUTPATIENT VISIT 04/09/2018 MEDG EN ([facility] 25 MINUTES 12:00:00 AM [facility]) Documentation of current 04/06/2018 MED GEN ([facility] medications (procedure) 12:00:00 AM T [facility]) Documentation of current 04/06/2018 MED GEN ([facility] medications (procedure) 12:00:00 AM T [facility]) Documentation of current 04/06/2018 MED GEN ([facility] medications (procedure) 12:00:00 AM T [facility]) OFFICE OUTPATIENT VISIT 04/06/2018 MEDG EN ([facility] 25 MINUTES 12:00:00 AM [facility]) COLLECTION VENOUS BLOOD 04/06/2018 MEDG EN ([facility] VENIPUNCTURE 12:00:00 AM [facility]) Results ID Date Data Source [id number] 03/28/2019 12:00:00 AM EDT MEDGEN ([facility], ) Name Value Range Interpretation Code Description Data Chantale rce(s) Supporting Document(s ) Ferritin, 4 ng/mL Below low normal MEDGEN (St Serum [facility], ) ID Date Data Source [id number] 03/28/2019 12:00:00 AM EDT MEDGEN ([facility], ) Name Value Range Interpretation Description Data Sup porting Code Source(s) Document(s ) Magnesium 1.9 mg/dL Normal (applies MEDGEN (St [Mass/volume] to non-numeric [facility] in Urine results) [facility], ) collected for unspecified duration ID Date Data Source [id number] 03/28/2019 12:00:00 AM EDT MEDGEN ([facility] Medical, ) Name Value Range Interpretation Description Data Sup porting Code Source(s) Document(s ) Hemoglobin 5.5 % Normal (applies to MEDGEN (St A1c/Hemoglobin. non-numeric [facility] total in Blood results) [facility], ) ID Date Data Source [id number] 03/28/2019 12:00:00 AM EDT MEDGEN ([facility] Medical, ) Name Value Range Interpretation Description Data Sup porting Code Source(s) Document(s ) Vitamin B12 508 pg/mL Normal (applies to MEDGEN (S t non-numeric [facility]'s results) [facility], ) Folate 9.7 ng/mL Normal (applies to MEDGEN (St (Folic non-numeric [facility]'s Acid), Serum results) [facility], ) ID Date Data Source [id number] 03/28/2019 12:00:00 AM EDT MEDGEN ([facility], ) Name Value Range Interpretation Description Data Sup porting Code Source(s) Document(s ) UIBC 347 ug/dL Normal (applies to MEDGEN (St non-numeric [facility]'s results) [facility], ) Iron 371 ug/dL Normal (applies to MEDGEN (St Bind.Cap.(TIBC non-numeric Gabriel's ) results) [facility], ) Iron 24 ug/dL Below low normal MEDGEN (St [Mass/volume] [facility] in Serum or Medical, ) Plasma Iron 6 % Below lower panic MEDGEN (St saturation limits [facility] [Mass [facility], ) Fraction] in Serum or Plasma ID Date Data Source [id number] 03/28/2019 12:00:00 AM EDT MEDGEN ([facility], ) Name Value Range Interpretation Description Data Sup porting Code Source(s) Document(s ) Cholesterol 187 Normal (applies MEDGEN (St [Mass/volume] in mg/dL to non-numeric [facility] Serum or Plasma results) Medical, ) HDL Cholesterol 50 mg/dL Normal (applies MEDGEN ( St to non-numeric [facility]'s results) [facility], ) Triglyceride 99 mg/dL Normal (applies MEDGEN (St [Mass/volume] in to non-numeric [facility] Serum or Plasma results) Medical, ) VLDL Cholesterol 20 mg/dL Normal (applies MEDGEN (St Shivani to non-numeric [facility] results) [facility], ) LDL Cholesterol 117 Above high normal MEDGEN (St Calc mg/dL [facility], ) ID Date Data Source [id number] 03/28/2019 12:00:00 AM EDT MEDGEN (St [facility], ) Name Value Range Interpretation Description Data Sup porting Code Source(s) Document(s ) Glucose 107 Above high MEDGEN (St [Mass/volume] in mg/dL normal [facility] Urine collected for Medical, unspecified PC) duration Urea nitrogen 16 mg/dL Normal (applies MEDGEN (St [Mass/volume] in to non-numeric [facility] Serum or Plasma results) Medical, ) eGFR If NonAfricn 92 Normal (applies MEDGEN (St Am mL/min/1 to non-numeric [facility] .73 results) Medical, PC) Creatinine 0.81 Normal (applies MEDGEN (St [Interpretation] in mg/dL to non-numeric [facility] s Urine results) Medical, ) eGFR If Africn Am 106 Normal (applies MEDGEN (St mL/min/1 to non-numeric [facility] .73 results) Medical, ) BUN/Creatinine 20 Normal (applies MEDGEN (S t Ratio to non-numeric [facility] results) Medical, PC) Potassium 3.9 Normal (applies MEDGEN (St [Mass/volume] in mmol/L to non-numeric [facility] Blood results) Medical, PC) Sodium 141 Normal (applies MEDGEN (St [Moles/volume] in mmol/L to non-numeric [facility] Serum or Plasma results) Medical, PC) Carbon dioxide, 20 Normal (applies MEDGEN ( St total mmol/L to non-numeric [facility] [Moles/volume] in results) Medical, Serum or Plasma PC) Chloride 109 Above high MEDGEN (St [Moles/volume] in mmol/L normal [facility] Serum or Plasma Medical, ) Calcium 8.8 Normal (applies MEDGEN (St [Moles/volume] in mg/dL to non-numeric [facility] Urine collected for results) Medical, unspecified PC) duration Protein 6.7 g/dL Normal (applies MEDGEN (St [Mass/volume] in to non-numeric [facility] Serum or Plasma results) Medical, PC) Globulin, Total 2.6 g/dL Normal (applies MEDGEN ( St to non-numeric [facility]'s results) [facility], ) Microalbumin 4.1 g/dL Normal (applies MEDGEN (St [Mass/time] in to non-numeric [facility] Urine collected for results) [facility], unspecified ) duration A/G Ratio 1.6 Normal (applies MEDGEN (St to non-numeric [facility]'s results) [facility], ) Bilirubin.total 0.6 Normal (applies MEDGEN ( St [Mass/volume] in mg/dL to non-numeric [facility] Serum or Plasma results) [facility], ) Aspartate 12 IU/L Normal (applies MEDGEN (St aminotransferase to non-numeric [facility]'s [Enzymatic results) Medical, activity/volume] in ) Serum or Plasma Alkaline 59 IU/L Normal (applies MEDGEN (St phosphatase to non-numeric Gabriel's [Enzymatic results) Medical, activity/volume] in ) Serum, Plasma or Blood Alanine 11 IU/L Normal (applies MEDGEN (St aminotransferase to non-numeric Gabriel's [Enzymatic results) [facility], activity/volume] in ) Serum or Plasma ID Date Data Source [id number] 03/28/2019 12:00:00 AM EDT MEDGEN ([facility], ) Name Value Range Interpretation Description Data Sup porting Code Source(s) Document(s ) Leukocytes 5.3 Normal (applies MEDGEN (St [#/volume] in x10E3/uL to non-numeric Gabriel's Blood by results) [facility], ) Automated count Hemoglobin 9.4 g/dL Below low normal MEDGEN (St [Mass/volume] in Gabriel's Blood [facility], ) Erythrocytes 4.83 Normal (applies MEDGEN (St [#/volume] in x10E6/uL to non-numeric [facility]'s Blood by results) [facility], ) Automated count Hematocrit 31.0 % Below low normal MEDGEN (St [Volume Gabriel's Fraction] of [facility], ) Blood by Automated count MCV 64 fL Below low normal MEDGEN ([facility], ) MCH 19.5 pg Below low normal MEDGEN ([facility], ) MCHC 30.3 Below low normal MEDGEN (St g/dL [facility], ) RDW 20.0 % Above high normal MEDGEN ([facility], ) Neutrophils [#] 47 % Normal (applies MEDGEN ( St in Body fluid by to non-numeric Gabriel's Manual count results) [facility], ) Platelets 329 Normal (applies MEDGEN (St [#/area] in x10E3/uL to non-numeric [facility] Blood by results) [facility], ) Microscopy high power field Lymphs 43 % Normal (applies MEDGEN (St to non-numeric Gabriel's results) [facility], ) Monocytes 7 % Normal (applies MEDGEN (St [#/volume] in to non-numeric Gabriel's Cord blood results) [facility], ) Basos 1 % Normal (applies MEDGEN (St to non-numeric Gabriel's results) [facility], ) Eos 2 % Normal (applies MEDGEN (St to non-numeric Gabriel's results) [facility], ) Neutrophils 2.5 Normal (applies MEDGEN (St (Absolute) x10E3/uL to non-numeric Gabriel's results) [facility], ) Lymphs 2.3 Normal (applies MEDGEN (St (Absolute) x10E3/uL to non-numeric Gabriel's results) [facility], ) Eos (Absolute) 0.1 Normal (applies MEDGEN (S t x10E3/uL to non-numeric Gabriel's results) [facility], ) Monocytes(Absolu 0.4 Normal (applies MEDGEN (St te) x10E3/uL to non-numeric Gabriel's results) [facility], ) Immature 0 % Normal (applies MEDGEN (St Granulocytes to non-numeric Gabriel's results) [facility], ) Baso (Absolute) 0.0 Normal (applies MEDGEN ( St x10E3/uL to non-numeric Gabriel's results) [facility], ) Immature Grans 0.0 Normal (applies MEDGEN (S t (Abs) x10E3/uL to non-numeric Gabriel's results) [facility], ) ID Date Data Source [id number] 08/09/2018 12:00:00 AM EST MED[facility] ([facility]) Name Value Range Interpretation Description Data Sup porting Code Source(s) Document(s ) Vitamin D, 18.0 Below low normal MEDGEN (St 25-Hydroxy ng/mL [facility]) ID Date Data Source [id number] 08/09/2018 12:00:00 AM EST MEDGEN ([facility]) Name Value Range Interpretation Code Description Data Chantale rce(s) Supporting Document(s ) TSH 1.880 Normal (applies to MEDGEN (St uIU/mL non-numeric results) [facility], ) ID Date Data Source [id number] 08/09/2018 12:00:00 AM EST [facility] ([facility], ) Name Value Range Interpretation Description Data Sup porting Code Source(s) Document(s ) Vitamin B12 543 pg/mL Normal (applies to MEDGEN (S t non-numeric Gabriel's results) Medical, ) Folate 11.5 Normal (applies to MEDGEN (St (Folic ng/mL non-numeric Gabriel's Acid), Serum results) [facility], ) ID Date Data Source [id number] 08/09/2018 12:00:00 AM EST MEDGEN ([facility], ) Name Value Range Interpretation Description Data Sup porting Code Source(s) Document(s ) Cholesterol 206 Above high normal MEDGEN (St [Mass/volume] in mg/dL Gabriel's Serum or Plasma [facility], ) HDL Cholesterol 58 mg/dL Normal (applies MEDGEN ( St to non-numeric Gabriel's results) [facility], ) Triglyceride 149 Normal (applies MEDGEN (St [Mass/volume] in mg/dL to non-numeric Gabriel's Serum or Plasma results) [facility], ) LDL Cholesterol 118 Above high normal MEDGEN (St Calc mg/dL Gabriel's [facility], ) VLDL Cholesterol 30 mg/dL Normal (applies MEDGEN (St Shivani to non-numeric Gabriel's results) [facility], ) ID Date Data Source [id number] 08/09/2018 12:00:00 AM EST [facility] ([facility], ) Name Value Range Interpretation Description Data Sup porting Code Source(s) Document(s ) Glucose 100 Above high MEDGEN (St [Mass/volume] in mg/dL normal Gabriel's Urine collected for Medical, unspecified PC) duration Urea nitrogen 16 mg/dL Normal (applies MEDGEN (St [Mass/volume] in to non-numeric Gabriel's Serum or Plasma results) Medical, ) Creatinine 0.83 Normal (applies MEDGEN (St [Interpretation] in mg/dL to non-numeric Gabriel' s Urine results) Medical, ) eGFR If Africn Am 103 Normal (applies MEDGEN (St mL/min/1 to non-numeric Gabriel's .73 results) Medical, PC) eGFR If NonAfricn 89 Normal (applies MEDGEN (St Am mL/min/1 to non-numeric Gabriel's .73 results) Medical, PC) BUN/Creatinine 19 Normal (applies MEDGEN (S t Ratio to non-numeric Gabriel's results) Medical, PC) Sodium 140 Normal (applies MEDGEN (St [Moles/volume] in mmol/L to non-numeric Gabriel's Serum or Plasma results) Medical, PC) Chloride 105 Normal (applies MEDGEN (St [Moles/volume] in mmol/L to non-numeric Gabriel's Serum or Plasma results) Medical, PC) Potassium 4.1 Normal (applies MEDGEN (St [Mass/volume] in mmol/L to non-numeric Gabriel's Blood results) Medical, PC) Calcium 9.1 Normal (applies MEDGEN (St [Moles/volume] in mg/dL to non-numeric Gabriel's Urine collected for results) Medical, unspecified PC) duration Carbon dioxide, 21 Normal (applies MEDGEN ( St total mmol/L to non-numeric Gabriel's [Moles/volume] in results) Medical, Serum or Plasma PC) Protein 6.5 g/dL Normal (applies MEDGEN (St [Mass/volume] in to non-numeric Gabriel's Serum or Plasma results) Medical, PC) Microalbumin 3.9 g/dL Normal (applies MEDGEN (St [Mass/time] in to non-numeric Gabriel's Urine collected for results) Medical, unspecified PC) duration Globulin, Total 2.6 g/dL Normal (applies MEDGEN ( St to non-numeric Gabriel's results) Medical, PC) Bilirubin.total 0.4 Normal (applies MEDGEN ( St [Mass/volume] in mg/dL to non-numeric Gabriel's Serum or Plasma results) Medical, PC) A/G Ratio 1.5 Normal (applies MEDGEN (St to non-numeric Gabriel's results) Medical, PC) Alkaline 51 IU/L Normal (applies MEDGEN (St phosphatase to non-numeric Gabriel's [Enzymatic results) Medical, activity/volume] in PC) Serum, Plasma or Blood Aspartate 18 IU/L Normal (applies MEDGEN (St aminotransferase to non-numeric Gabriel's [Enzymatic results) Medical, activity/volume] in PC) Serum or Plasma Alanine 19 IU/L Normal (applies MEDGEN (St aminotransferase to non-numeric Gabriel's [Enzymatic results) [facility], activity/volume] in ) Serum or Plasma ID Date Data Source [id number] 08/09/2018 12:00:00 AM EST MEDGEN ([facility], ) Name Value Range Interpretation Description Data Sup porting Code Source(s) Document(s ) Leukocytes 7.6 Normal (applies MEDGEN (St [#/volume] in x10E3/uL to non-numeric Gabriel's Blood by results) [facility]) Automated count Hemoglobin 9.1 g/dL Below low normal MEDGEN (St [Mass/volume] in [facility] Blood [facility]) Erythrocytes 4.74 Normal (applies MEDGEN (St [#/volume] in x10E6/uL to non-numeric Gabriel's Blood by results) [facility]) Automated count Hematocrit 30.1 % Below low normal MEDGEN (St [Volume Gabriel's Fraction] of [facility]) Blood by Automated count MCV 64 fL Below low normal MEDGEN ([facility]) MCH 19.2 pg Below low normal MEDGEN ([facility]) MCHC 30.2 Below low normal [facility] (St g/dL [facility] Platelets 378 Normal (applies MEDGEN (St [#/area] in x10E3/uL to non-numeric Gabriel's Blood by results) [facility]) Microscopy high power field RDW 19.9 % Above high normal MEDGEN ([facility]) Lymphs 40 % Normal (applies MEDGEN (St to non-numeric Gabriel's results) [facility]) Neutrophils [#] 46 % Normal (applies MEDGEN ( St in Body fluid by to non-numeric Gabriel's Manual count results) [facility]) Monocytes 9 % Normal (applies MEDGEN (St [#/volume] in to non-numeric Gabriel's Cord blood results) [facility]) Eos 5 % Normal (applies MEDGEN (St to non-numeric Gabriel's results) [facility]) Basos 0 % Normal (applies MEDGEN (St to non-numeric Gabriel's results) [facility]) Neutrophils 3.5 Normal (applies MEDGEN (St (Absolute) x10E3/uL to non-numeric Gabriel's results) [facility]) Lymphs 3.1 Normal (applies MEDGEN (St (Absolute) x10E3/uL to non-numeric Gabriel's results) Medical, ) Monocytes(Absolu 0.7 Normal (applies MEDGEN (St te) x10E3/uL to non-numeric Gabriel's results) Medical, ) Eos (Absolute) 0.4 Normal (applies MEDGEN (S t x10E3/uL to non-numeric Gabriel's results) Medical, ) Baso (Absolute) 0.0 Normal (applies MEDGEN ( St x10E3/uL to non-numeric Gabriel's results) Medical, ) Immature 0 % Normal (applies MEDGEN (St Granulocytes to non-numeric Gabriel's results) [facility], ) Immature Grans 0.0 Normal (applies MEDGEN (S t (Abs) x10E3/uL to non-numeric Gabriel's results) [facility], ) ID Date Data Source [id number] 04/06/2018 12:00:00 AM EDT MEDGEN ([facility], ) Name Value Range Interpretation Code Description Data Chantale rce(s) Supporting Document(s ) TSH 2.430 Normal (applies to MEDGEN (St uIU/mL non-numeric results) [facility] [place] [facility], ) ID Date Data Source [id number] 04/06/2018 12:00:00 AM EDT MEDGEN ([facility], ) Name Value Range Interpretation Description Data Sup porting Code Source(s) Document(s ) Vitamin D, 17.0 Below low normal MEDGEN (St 25-Hydroxy ng/mL [facility], ) ID Date Data Source [id number] 04/06/2018 12:00:00 AM EDT MEDGEN ([facility], ) Name Value Range Interpretation Description Data Sup porting Code Source(s) Document(s ) Hemoglobin 5.4 % Normal (applies to MEDGEN (St A1c/Hemoglobin. non-numeric Gabriel's total in Blood results) [facility], ) ID Date Data Source [id number] 04/06/2018 12:00:00 AM EDT MEDGEN ([facility], ) Name Value Range Interpretation Description Data Sup porting Code Source(s) Document(s ) QuantiFERON Incubation Normal (applies MEDGEN (St Incubation performed. to non-numeric Gabriel's results) Medical, ) QuantiFERON-TB Positive Abnormal MEDGEN (St Gold Plus (applies to Gabriel's non-numeric Medical, results) ) ID Date Data Source [id number] 04/06/2018 12:00:00 AM EDT MEDGEN ([facility], ) Name Value Range Interpretation Description Data Sup porting Code Source(s) Document(s ) QuantiFERON TB1 7.55 Normal (applies MEDGEN ( St Ag Value IU/mL to non-numeric Gabriel's results) Medical, ) QuantiFERON Normal (applies MEDGEN (St Criteria to non-numeric Gabriel's results) Medical, ) QuantiFERON Nil 0.06 Normal (applies MEDGEN ( St Value IU/mL to non-numeric Gabriel's results) Medical, ) QuantiFERON TB2 5.12 Normal (applies MEDGEN ( St Ag Value IU/mL to non-numeric Gabriel's results) Medical, ) QuantiFERON >10.00 Normal (applies MEDGEN (St Mitogen Value to non-numeric Gabriel's results) Medical, ) ID Date Data Source [id number] 04/06/2018 12:00:00 AM EDT [facility] ([facility], ) Name Value Range Interpretation Description Data Sup porting Code Source(s) Document(s ) Cholesterol 222 Above high normal MEDGEN (St [Mass/volume] in mg/dL Gabriel's Serum or Plasma Medical, ) Triglyceride 87 mg/dL Normal (applies MEDGEN (St [Mass/volume] in to non-numeric Gabriel's Serum or Plasma results) Medical, ) HDL Cholesterol 67 mg/dL Normal (applies MEDGEN ( St to non-numeric Gabriel's results) Medical, ) VLDL Cholesterol 17 mg/dL Normal (applies MEDGEN (St Shivani to non-numeric Gabriel's results) Medical, ) LDL Cholesterol 138 Above high normal MEDGEN (St Calc mg/dL Gabriel's [facility], ) ID Date Data Source [id number] 04/06/2018 12:00:00 AM EDT MEDGEN ([facility], ) Name Value Range Interpretation Description Data Sup porting Code Source(s) Document(s ) Urea nitrogen 17 mg/dL Normal (applies MEDGEN (St [Mass/volume] in to non-numeric Gabriel's Serum or Plasma results) Medical, PC) Glucose 85 mg/dL Normal (applies MEDGEN (St [Mass/volume] in to non-numeric Gabriel's Urine collected for results) Medical, unspecified PC) duration Creatinine 0.78 Normal (applies MEDGEN (St [Interpretation] in mg/dL to non-numeric Gabriel' s Urine results) Medical, PC) eGFR If NonAfricn 97 Normal (applies MEDGEN (St Am mL/min/1 to non-numeric Gabriel's .73 results) Medical, PC) eGFR If Africn Am 112 Normal (applies MEDGEN (St mL/min/1 to non-numeric Gabriel's .73 results) Medical, PC) BUN/Creatinine 22 Normal (applies MEDGEN (S t Ratio to non-numeric Gabriel's results) Medical, PC) Sodium 138 Normal (applies MEDGEN (St [Moles/volume] in mmol/L to non-numeric Gabriel's Serum or Plasma results) Medical, PC) Chloride 101 Normal (applies MEDGEN (St [Moles/volume] in mmol/L to non-numeric Gabriel's Serum or Plasma results) Medical, PC) Potassium 5.4 Above high MEDGEN (St [Mass/volume] in mmol/L normal Gabriel's Blood Medical, PC) Calcium 9.4 Normal (applies MEDGEN (St [Moles/volume] in mg/dL to non-numeric Gabriel's Urine collected for results) Medical, unspecified PC) duration Protein 7.6 g/dL Normal (applies MEDGEN (St [Mass/volume] in to non-numeric Gabriel's Serum or Plasma results) Medical, PC) Microalbumin 4.1 g/dL Normal (applies MEDGEN (St [Mass/time] in to non-numeric Gabriel's Urine collected for results) Medical, unspecified PC) duration A/G Ratio 1.2 Normal (applies MEDGEN (St to non-numeric Gabriel's results) Medical, PC) Globulin, Total 3.5 g/dL Normal (applies MEDGEN ( St to non-numeric Gabriel's results) Medical, PC) Alkaline 58 IU/L Normal (applies MEDGEN (St phosphatase to non-numeric Gabriel's [Enzymatic results) Medical, activity/volume] in PC) Serum, Plasma or Blood Bilirubin.total 0.3 Normal (applies MEDGEN ( St [Mass/volume] in mg/dL to non-numeric Gabriel's Serum or Plasma results) [facility], ) Aspartate 26 IU/L Normal (applies MEDGEN (St aminotransferase to non-numeric Gabriel's [Enzymatic results) [facility], activity/volume] in ) Serum or Plasma ID Date Data Source [id number] 04/06/2018 12:00:00 AM EDT MEDGEN ([facility], ) Name Value Range Interpretation Description Data Sup porting Code Source(s) Document(s ) Leukocytes 8.0 Normal (applies MEDGEN (St [#/volume] in x10E3/uL to non-numeric Gabriel's Blood by results) [facility], ) Automated count Erythrocytes 5.07 Normal (applies MEDGEN (St [#/volume] in x10E6/uL to non-numeric Gabriel's Blood by results) [facility], ) Automated count Hemoglobin 10.1 Below low normal MEDGEN (St [Mass/volume] in g/dL Gabriel's Blood [facility], ) Hematocrit 33.2 % Below low normal MEDGEN (St [Volume Gabriel's Fraction] of [facility], ) Blood by Automated count MCV 66 fL Below low normal MEDGEN ([facility], ) MCH 19.9 pg Below low normal MEDGEN ([facility], ) MCHC 30.4 Below low normal MEDGEN (St g/dL [facility], ) RDW 18.5 % Above high normal MEDGEN ([facility], ) Lymphs 46 % Normal (applies MEDGEN (St to non-numeric Gabriel's results) [facility], ) Neutrophils [#] 42 % Normal (applies MEDGEN ( St in Body fluid by to non-numeric Gabriel's Manual count results) [facility], ) Platelets 382 Above high normal MEDGEN (St [#/area] in x10E3/uL Gabriel's Blood by [facility], ) Microscopy high power field Monocytes 6 % Normal (applies MEDGEN (St [#/volume] in to non-numeric Gabriel's Cord blood results) [facility], ) Eos 6 % Normal (applies MEDGEN (St to non-numeric Gabriel's results) [facility], ) Neutrophils 3.4 Normal (applies MEDGEN (St (Absolute) x10E3/uL to non-numeric Gabriel's results) [facility], ) Basos 0 % Normal (applies MEDGEN (St to non-numeric Gabriel's results) [facility], ) Lymphs 3.7 Above high normal MEDGEN (St (Absolute) x10E3/uL [facility], ) Monocytes(Absolu 0.5 Normal (applies MEDGEN (St te) x10E3/uL to non-numeric Gabriel's results) [facility], ) Baso (Absolute) 0.0 Normal (applies MEDGEN ( St x10E3/uL to non-numeric Gabriel's results) [facility], ) Eos (Absolute) 0.4 Normal (applies MEDGEN (S t x10E3/uL to non-numeric Gabriel's results) [facility], ) Immature 0 % Normal (applies MEDGEN (St Granulocytes to non-numeric Gabriel's results) [facility]) Immature Grans 0.0 Normal (applies MEDGEN (S t (Abs) x10E3/uL to non-numeric Gabriel's results) [facility], ) Procedure Social History Code Duration Value Status Description Data Source(s ) Smoking 02/02/2020 non smoker no completed non smoker no MEDGEN ( St 12:00:00 AM EDT alcohol use alcohol use [facility], [employer] ) Smoking 02/02/2020 Unknown if ever completed Unknown if ever MEDG EN (St 12:00:00 AM EDT [facility] [facility] Smoking 07/04/2018 Denies Ever Smoked completed Denies Ever Smoke d [facility] 04:43:00 PM EST Medical C enter Smoking 07/04/2018 Denies Ever Smoked completed Denies Ever Smoke d [facility] 04:29:00 PM EST Medical C enter Vital Signs ID Date Data Source UNK Name Value Range Interpretation Code Description Data Source(s) Body mass index 30 kg/m2 30 kg/m2 MEDGEN (S t (BMI) [Ratio] [facility], ) Diastolic blood 84 mm[Hg] 84 mm[Hg] MEDGEN (S t pressure [facility]) Systolic blood 120 mm[Hg] 120 mm[Hg] MEDGEN (St pressure [facility] , ) Body weight 180 lb 180 lb MEDGEN ([facility] , ) Body height 65 in 65 in [facility] ([facility] , ) Body mass index 30.9 kg/m2 30.9 kg/m2 MEDGEN (S t (BMI) [Ratio] [facility]) Diastolic blood 80 mm[Hg] 80 mm[Hg] MEDGEN (S t [facility]) Systolic blood 124 mm[Hg] 124 mm[Hg] MEDGEN ([facility]) Body weight 186 lb 186 lb MEDGEN ([facility]) Body height 65 in 65 in MEDGEN ([facility]) Heart rate 80 /min 80 /min MEDGEN ([facility]) Diastolic blood 80 mm[Hg] 80 mm[Hg] MEDGEN (S t [facility]) Systolic blood 128 mm[Hg] 128 mm[Hg] MEDGEN ([facility]) Body mass index 30.9 kg/m2 30.9 kg/m2 MEDGEN (S t (BMI) [Ratio] [facility]) Diastolic blood 80 mm[Hg] 80 mm[Hg] MEDGEN (S t [facility]) Systolic blood 128 mm[Hg] 128 mm[Hg] MEDGEN ([facility]) Body weight 186 lb 186 lb MEDGEN ([facility]) Body height 65 in 65 in MEDGEN ([facility]) Heart rate 86 /min 86 /min MEDGEN ([facility]) Respiratory rate 14 /min 14 /min MEDGEN ( [facility]) Body temperature 98.1 F 98.1 F MEDGEN ( [facility]) Inhaled oxygen 100 % 100 % MEDGEN ([facility]) Body mass index 32.8 kg/m2 32.8 kg/m2 MEDGEN (S t (BMI) [Ratio] [facility]) Diastolic blood 73 mm[Hg] 73 mm[Hg] MEDGEN (S t [facility]) Systolic blood 112 mm[Hg] 112 mm[Hg] MEDGEN ([facility]) Body weight 197 lb 197 lb MEDGEN ([facility]) Body height 65 in 65 in MEDGEN ([facility]) Heart rate 78 /min 78 /min MEDGEN ([facility]) Respiratory rate 14 /min 14 /min MEDGEN ( [facility]) Body temperature 96 F 96 F MEDGEN ( [facility]) Inhaled oxygen 96 % 96 % MEDGEN ([facility]) Body mass index 34.5 kg/m2 34.5 kg/m2 MEDGEN (S t (BMI) [Ratio] [facility], ) Diastolic blood 69 mm[Hg] 69 mm[Hg] MEDGEN (S t [facility]) Systolic blood 96 mm[Hg] 96 mm[Hg] MEDGEN ([facility]) Body weight 214 lb 214 lb MEDGEN ([facility]) Body height 66 in 66 in MEDGEN ([facility]) Respiratory rate 13 /min 13 /min MEDGEN ( [facility]) Body temperature 98.2 F 98.2 F MEDGEN ( [facility]) Body mass index 36.6 kg/m2 36.6 kg/m2 MEDGEN (S t (BMI) [Ratio] [facility], ) Diastolic blood 78 mm[Hg] 78 mm[Hg] MEDGEN (S t [facility]) Systolic blood 140 mm[Hg] 140 mm[Hg] MEDGEN ([facility]) Body weight 227 lb 227 lb MEDGEN ([facility]) Body height 66 in 66 in MEDGEN ([facility]) Respiratory rate 13 /min 13 /min MEDGEN ( [facility]) Body temperature 98.2 F 98.2 F MEDGEN ( [facility]) Body mass index 37 kg/m2 37 kg/m2 MEDGEN (S t (BMI) [Ratio] [facility]) Diastolic blood 78 mm[Hg] 78 mm[Hg] MEDGEN (S t [facility]) Systolic blood 130 mm[Hg] 130 mm[Hg] MEDGEN ([facility]) Body weight 229 lb 229 lb MEDGEN ([facility]) Body height 66 in 66 in MEDGEN ([facility]) Heart rate 87 /min 87 /min MEDGEN ([facility]) Respiratory rate 13 /min 13 /min MEDGEN ( [facility]) Body temperature 98.2 F 98.2 F MEDGEN ( [facility]) Inhaled oxygen 99 % 99 % MEDGEN ([facility]) Body mass index 37.1 kg/m2 37.1 kg/m2 MEDGEN (S t (BMI) [Ratio] [facility]) Diastolic blood 88 mm[Hg] 88 mm[Hg] MEDGEN (S t pressure [facility]) Systolic blood 143 mm[Hg] 143 mm[Hg] MEDGEN ([facility]) Body weight 230 lb 230 lb MEDGEN ([facility]) Body height 66 in 66 in MEDGEN ([facility]) Heart rate 76 /min 76 /min MED[facility] ([facility]) Respiratory rate 16 /min 16 /min MED[facility] ( [facility]) Inhaled oxygen 97 % 97 % MEDGEN ([facility]) Body mass index 40 kg/m2 40 kg/m2 MEDGEN (S t (BMI) [Ratio] [facility], ) Diastolic blood 70 mm[Hg] 70 mm[Hg] MEDGEN (S t [facility]) Systolic blood 122 mm[Hg] 122 mm[Hg] MEDGEN ([facility]) Body weight 226 lb 226 lb MEDGEN ([facility]) Body height 63 in 63 in MEDGEN ([facility]) Body mass index 40.7 kg/m2 40.7 kg/m2 MEDGEN (S t (BMI) [Ratio] [facility], ) Diastolic blood 70 mm[Hg] 70 mm[Hg] MEDGEN (S t [facility]) Systolic blood 122 mm[Hg] 122 mm[Hg] MEDGEN ([facility]) Body weight 230 lb 230 lb MEDGEN ([facility]) Body height 63 in 63 in MEDGEN ([facility]) Body weight 102.048990 102.767353 kg [facility] Body temperature 36.279908 36.913973 [facility] Respiratory rate 26 /min 26 /min [facility] Oxygen saturation 97 % 97 % [facility] Arterial blood [facility] by Pulse oximetry Heart rate 88 /min 88 /min [facility] Body height 162.026681 162.410445 cm [facility] Diastolic blood 77 mm[Hg] 77 mm[Hg] [facility] pressure Medical Center Systolic blood 132 mm[Hg] 132 mm[Hg] [facility] Body mass index 38.5 kg/m2 38.5 kg/m2 [facility] (BMI) [Ratio] [facility] Heart rate 76 /min 76 /min MEDGEN ([facility]) Respiratory rate 16 /min 16 /min MEDGEN ( [facility]) Inhaled oxygen 97 % 97 % MEDGEN ([facility]) Body mass index 40 kg/m2 40 kg/m2 MEDGEN (S t (BMI) [Ratio] [facility]) Diastolic blood 78 mm[Hg] 78 mm[Hg] MEDGEN (S [facility]) Systolic blood 110 mm[Hg] 110 mm[Hg] MEDGEN ([facility]) Body weight 226 lb 226 lb MEDGEN ([facility]) Body height 63 in 63 in MEDGEN ([facility]) Heart rate 76 /min 76 /min MED[facility] ([facility]) Respiratory rate 16 /min 16 /min MEDGEN ( [facility]) Inhaled oxygen 97 % 97 % MEDGEN ([facility]) Body mass index 40 kg/m2 40 kg/m2 MEDGEN (S t (BMI) [Ratio] [facility]) Diastolic blood 78 mm[Hg] 78 mm[Hg] MEDGEN (S [facility]) Systolic blood 110 mm[Hg] 110 mm[Hg] MEDGEN ([facility]) Body weight 226 lb 226 lb [facility] Body height 63 in 63 in [facility] ([facility]) Patient Treatment Plan of Care Planned Activity Planned Date Details Description Data Source (s) Prednisone 20 MG Oral [facility]t Center Zolpidem tartrate 5 MG Oral [facility] Tablet Center 200 ACTUAT Albuterol 0.09 [facility] MG/ACTUAT Metered Dose Cente r Inhaler [ProAir] isoniazid 300 MG Oral [facility] Tablet Center fluticasone 50 [facility] mcg/actuation Center spray,suspension 14 ACTUAT Fluticasone [facility] propionate 0.25 MG/ACTUAT / Center salmeterol 0.05 MG/ACTUAT Dry Powder Inhaler [Advair]
[2020-03-09 11:52] VITALS: BMI 31.9
--- OUTSIDE RECORDS SUMMARY | 2020-03-12 04:59 | XMS ---
:1980 Author Organization [facility] Care Team Providers Name Role Phone [...] is protected by Article 27-F of the [facility] Public Health law. If you continue you may haveaccess to information: Regarding HIV / AIDS; Provided by facilities licensed or operated by the [facility] Office of Mental Health; or Provided by the [facility] Office for People With Developmental Disabilities. If such information is present, then the following [facility] mandated warning applies: This information has been [...] law may result in a fine or skilled nursing sentence or both. A general authorization for the release of medical or other information is NOT sufficient authorization for further disclosure. Allergies and Adverse Reactions Type Description Substance Reaction Status Data Source(s ) Drug allergy CECLOR CECLOR:[id number] Active MEDGEN ([facility]) Encounters Encounter Providers Location Date Indications Data Source(s ) Attender: Gary 02/02/2020 MED[facility] ([facility] [place] 12:00:00 AM [facility], ) EDT Office Medications Medication Brand Start Product Dose Route Administrative Pharmacy [facility] Indications Reaction Description Data Name Date Form Instructions Instructions Source(s) Escitalopra ESCITA 06/30/ TABLET 30 complet ESCI TALOPRAM MEDGEN (St m 10 MG LOPRAM 2019 ed [facility] Oral Tablet :[id number] 12:00: Medi shivani, ESCITALOPRA 2 00 AM PC) [id number] EST ropinirole ROPINI 03/28/ TABLET 30 complet ROPIN IROLE MEDGEN (St 0.25 MG ROLE:3 2018 ed [facility] Oral Tablet 30639 12:00: Medic al, ROPINIROLE: 00 AM PC) [id number] EDT ropinirole ROPINI 03/28/ complet ROPINIR OLE MEDGEN (St 0.25 MG ROLE:3 2018 ed [facility] Oral Tablet 30136 12:00: Medic al, ROPINIROLE: 00 AM PC) [id number] EDT Albuterol 1 ALBUTE 03/28/ complet ALBUTE ROL MEDGEN (St MG/ML ROL:2018 ed [facility] Inhalant 5314 12:00: Medical, Solution 00 AM PC) ALBUTEROL:2 EDT 00902 Famotidine FAMOTI 03/28/ TABLET 30 complet FAMOT IDINE MEDGEN (St 40 MG Oral DINE:2 2018 ed [facility] Tablet 93287 12:00: Medical, FAMOTIDINE: 00 AM PC) [id number] EDT Fluticasone ADVAIR 05/20/ POWDER 3 complet ADVA IR MEDGEN (St propionate DISKUS 2019 ed DISKUS Gabriel[facility] s 0.5 :51411 12:00: Medical, MG/ACTUAT / 91 00 AM PC) salmeterol EDT 0.05 MG/ACTUAT Dry Powder Inhaler [Advair] ADVAIR DISKUS:1359 991 montelukast PAULETTE 08/09/ TABLET 30 complet TAMMY ELUKAST MEDGEN (St 10 MG Oral UKAST: 2019 ed [facility] Tablet [id number] 12:00: Medical, MONTELUKAST 00 AM PC) :[id number] EST Albuterol VENTOL 08/09/ AEROSOL 1 complet BETH EMILIANO HFA MEDGEN (St 0.09 IN 2019 ed [facility] MG/ACTUAT HFA:13 12:00: Medica l, Metered 27513 00 AM PC) Dose EST Inhaler [Ventolin] VENTOLIN HFA:[id number] Melatonin 3 MELATO 30/ TABLET 30 complet ECHO TONIN MEDGEN (St MG Oral MIRIAN:19 2017 ed [facility] Tablet 9163 12:00: Medical, MELATONIN:1 00 AM PC) 36310 EDT Prednisone predni 2 complet Jose Raul [...] name Policy type Policy ID Covered Covered alliance party's Policy P ciarra / Coverage alliance party ID relationship to Ramírez Inf ormation type ramírez [employer] [id number] SP [id number] NON CAP [place] [id number] 1 [id number] [employer] [facility] [id number] [facility] [id number] [employer] 1 2 Problems, Conditions, and Diagnoses Code Display Name Description Problem Type Effective Data Sour ce(s) Dates N63.11 Unspecified lump in UNSPECIFIED LUMP Problem 02/02/2020 MEDGEN (St the right breast, IN THE RIGHT 12:00:00 AM [facility] upper outer BREAST, UPPER T Medical, P C) quadrant OUTER QUADRANT F43.21 Adjustment disorder ADJUSTMENT Problem 06/30/2019 MEDGE N (St with depressed mood DISORDER WITH 12:00:00 AM Elzbieta [facility] DEPRESSED MOOD [facility] Medical, P C) D50.9 Iron deficiency IRON DEFICIENCY Problem 03/28/2019 MEDG EN (St anemia, unspecified ANEMIA, 12:00:00 AM [facility] UNSPECIFIED T Medical, ) J45.30 Mild persistent MILD PERSISTENT Problem 03/28/2019 MEDG EN (St asthma, ASTHMA, 12:00:00 AM [facility] uncomplicated UNCOMPLICATED EDT Medical, ) G47.01 Insomnia due to INSOMNIA DUE TO Problem 03/28/2019 MEDG EN (St medical condition MEDICAL CONDITION 12:00:00 [facility], ) K21.9 Gastro-esophageal GASTRO-ESOPHAGEAL Problem 03/28/2019 MEDGEN (St reflux disease REFLUX DISEASE 12:00:00 AM [facility] without esophagitis WITHOUT EDT Medic al, ) ESOPHAGITIS G25.81 Restless legs RESTLESS LEGS Problem 03/28/2019 MEDGEN ( St syndrome SYNDROME 12:00:00 AM [facility], ) E66.9 Obesity, OBESITY, Problem 12/15/2018 MEDGEN (St unspecified UNSPECIFIED 12:00:00 AM [facility], ) 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 12/15/2018 MEDGEN (St urticaria URTICARIA 12:00:00 AM [facility], ) Z01.818 Encounter for other ENCOUNTER FOR Problem 11/08/2018 ME DGEN (St preprocedural OTHER 12:00:00 AM [facility] examination PREPROCEDURAL EDT Medical, P C) EXAMINATION J45.41 Moderate persistent MODERATE Problem 10/25/2018 MEDGE N (St asthma with (acute) PERSISTENT ASTHMA 12:00:00 AM [facility] exacerbation WITH (ACUTE) EDT Medical, P C) EXACERBATION E55.9 Vitamin D VITAMIN D Problem 10/18/2018 MEDGEN (St deficiency, DEFICIENCY, 12:00:00 AM [facility] unspecified UNSPECIFIED EDT Medical, ) D50.8 Other iron OTHER IRON Problem 10/18/2018 MEDGEN (St deficiency anemias DEFICIENCY ANEMIAS 12:00:00 AM [facility], ) M25.00 Hemarthrosis, HEMARTHROSIS, Problem 10/18/2018 MEDGEN ( St unspecified joint UNSPECIFIED JOINT 12:00:00 AM [facility], ) M79.2 Neuralgia and NEURALGIA AND Problem 08/09/2018 MEDGEN ( St neuritis, NEURITIS, 12:00:00 AM [facility]'s unspecified UNSPECIFIED [facility], ) E66.01 Morbid (severe) MORBID (SEVERE) Problem 08/09/2018 MEDG EN (St obesity due to OBESITY DUE TO 12:00:00 AM [facility] excess calories EXCESS CALORIES EST [facility], ) E66.8 Other obesity OTHER OBESITY Problem 08/09/2018 MEDGEN ( St 12:00:00 AM [facility], ) J45.40 Moderate persistent MODERATE Problem 08/09/2018 MEDGE N (St asthma, PERSISTENT ASTHMA, 12:00:00 AM [facility] s uncomplicated UNCOMPLICATED EST Medical, ) G47.33 Obstructive sleep OBSTRUCTIVE SLEEP Problem 08/09/2018 MEDGEN (St apnea (adult) APNEA (ADULT) 12:00:00 AM [facility] (pediatric) (PEDIATRIC) [facility], ) G47.30 Sleep apnea, SLEEP APNEA, Problem 08/09/2018 MEDGEN (St unspecified UNSPECIFIED 12:00:00 AM [facility], ) B35.1 Tinea unguium TINEA UNGUIUM Problem 08/09/2018 MEDGEN ( St 12:00:00 AM [facility], ) 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/06/2018 MEDGEN (St tuberculosis OF TUBERCULOSIS 12:00:00 AM [facility], ) J45.20 Mild intermittent MILD INTERMITTENT Problem 04/06/2018 MEDGEN (St asthma, ASTHMA, 12:00:00 AM [facility] uncomplicated UNCOMPLICATED [facility] Medical, ) G47.00 Insomnia, INSOMNIA, Problem 04/06/2018 MEDGEN (St unspecified UNSPECIFIED 12:00:00 AM [facility], ) F41.9 Anxiety disorder, ANXIETY DISORDER, Problem 04/06/2018 MEDGEN (St unspecified UNSPECIFIED 12:00:00 AM [facility], ) Surgeries/Procedures Procedure Description Date Indications Data Source(s) Documentation of current 02/02/2020 MED GEN ([facility] medications (procedure) 12:00:00 AM HANNAH yin, ) OFFICE OUTPATIENT VISIT 02/02/2020 MEDG EN ([facility] Documentation of current 08/08/2019 MED GEN ([facility] medications (procedure) 12:00:00 AM NICK yin, ) Documentation of current 08/08/2019 MED GEN ([facility] medications (procedure) 12:00:00 AM NICK yin, ) OFFICE OUTPATIENT VISIT 08/08/2019 MEDG EN ([facility] 15 MINUTES 12:00:00 AM [facility], ) Documentation of current 06/30/2019 MED GEN ([facility] medications (procedure) 12:00:00 AM NICK yin, ) Documentation of current 06/30/2019 MED GEN ([facility] medications (procedure) 12:00:00 AM NICK yin, PC) Documentation of current 06/30/2019 MED GEN ([facility] medications (procedure) 12:00:00 AM EST Sam yin PC) Documentation of current 06/30/2019 MED GEN ([facility] medications (procedure) 12:00:00 AM EST Sam yin PC) Documentation of current 06/30/2019 MED GEN ([facility] medications (procedure) 12:00:00 AM NICK yin PC) OFFICE OUTPATIENT VISIT 06/30/2019 MEDG EN ([facility] 15 MINUTES 12:00:00 AM NICK Veras, PC) Documentation of current 03/28/2019 MED GEN ([facility] medications (procedure) 12:00:00 AM EDT Sam yin PC) Documentation of current 03/28/2019 MED GEN ([facility] medications (procedure) 12:00:00 AM EDT Sam yin PC) Documentation of current 03/28/2019 MED GEN ([facility] medications (procedure) 12:00:00 AM EDT Sam yin PC) Documentation of current 03/28/2019 MED GEN ([facility] medications (procedure) 12:00:00 AM EDT Sam yin, PC) Documentation of current 03/28/2019 MED GEN ([facility] medications (procedure) 12:00:00 AM EDT Sam yin PC) Documentation of current 03/28/2019 MED GEN ([facility] medications (procedure) 12:00:00 AM EDT Sam yin PC) Documentation of current 03/28/2019 MED GEN ([facility] medications (procedure) 12:00:00 AM EDT Sam yin PC) Documentation of current 03/28/2019 MED GEN [...] MEDG EN ([facility] 25 MINUTES 12:00:00 AM [facility] Medical, ) BRIEF EMOTIONAL BEHAVIOR 03/28/2019 MED GEN ([facility] 12:00:00 AM ED Medical, ) COLLECTION VENOUS BLOOD 03/28/2019 MEDG EN ([facility] VENIPUNCTURE 12:00:00 AM [facility] Medical, ) OFFICE OUTPATIENT VISIT 12/15/2018 MEDG EN ([facility] 15 MINUTES 12:00:00 AM ED Medical, ) Documentation of current 11/08/2018 MED GEN ([facility] medications (procedure) 12:00:00 AM EDT edical, ) Documentation of current 11/08/2018 MED GEN ([facility] medications (procedure) 12:00:00 AM EDT edical, PC) Documentation of current 11/08/2018 MED GEN ([facility] medications (procedure) 12:00:00 AM EDT edical, PC) Documentation of current 11/08/2018 MED GEN ([facility] medications (procedure) 12:00:00 AM EDT edical, PC) OFFICE OUTPATIENT VISIT 11/08/2018 MEDG EN ([facility] 25 MINUTES 12:00:00 AM [facility] Medical, ) Documentation of current 10/25/2018 MED [...] GEN ([facility] medications (procedure) 12:00:00 AM EDT [facility], PC) Documentation of current 10/25/2018 MED GEN ([facility] medications (procedure) 12:00:00 AM EDT [place], PC) OFFICE OUTPATIENT VISIT 10/25/2018 MEDG EN ([facility] 25 MINUTES 12:00:00 AM ED Medical, PC) OFFICE OUTPATIENT VISIT 10/18/2018 MEDG EN ([facility] 15 MINUTES 12:00:00 AM ED Medical, ) COLLECTION VENOUS BLOOD 10/18/2018 MEDG EN ([facility] VENIPUNCTURE 12:00:00 AM [facility] Medical, ) Documentation of current 08/09/2018 MED GEN ([facility] [...] GEN ([facility] medications (procedure) 12:00:00 AM EDT [facility], ) Documentation of current 04/09/2018 MED GEN ([facility] medications (procedure) 12:00:00 AM EDT [facility], ) Documentation of current 04/09/2018 MED GEN ([facility] medications (procedure) 12:00:00 AM EDT [facility], ) Documentation of current 04/09/2018 MED GEN ([facility] medications (procedure) 12:00:00 AM EDT [facility], ) OFFICE OUTPATIENT VISIT 04/09/2018 MEDG EN ([facility] 25 MINUTES 12:00:00 AM [facility], ) Documentation of current 04/06/2018 MED GEN ([facility] medications (procedure) 12:00:00 AM EDT [facility], ) Documentation of current 04/06/2018 MED GEN ([facility] medications (procedure) 12:00:00 AM EDT [facility], ) Documentation of current 04/06/2018 MED GEN ([facility] medications (procedure) 12:00:00 AM EDT [facility], ) OFFICE OUTPATIENT VISIT 04/06/2018 MEDG EN ([facility] 25 MINUTES 12:00:00 AM [facility]) COLLECTION VENOUS BLOOD 04/06/2018 MEDG EN ([facility] VENIPUNCTURE 12:00:00 AM [facility], ) Results ID Date Data Source [id number] 03/08/2020 08:40:00 AM EDT [facility] Name Value Range Interpretation Description Data Sup porting Code Source(s) Document(s ) SARS [facility] coronavirus 2 RNA This lab was ordered by [facility] and reported by [facility]. ID Date Data Source [id number] 03/28/2019 12:00:00 AM EDT MEDGEN (St [facility] Medical, ) Name Value Range Interpretation Code Description Data Chantale rce(s) Supporting Document(s ) Ferritin, 4 ng/mL Below low normal MEDGEN (St [facility], ) ID Date Data Source [id number] 03/28/2019 12:00:00 AM EDT MED[facility] (St [facility], ) Name Value Range Interpretation Description Data Sup porting Code Source(s) Document(s ) Magnesium 1.9 mg/dL Normal (applies MEDGEN (St [Mass/volume] to non-numeric [facility] in Urine results) [facility], ) collected for unspecified duration ID Date Data Source [id number] 03/28/2019 12:00:00 AM EDT [facility] ([facility], ) Name Value Range Interpretation Description Data Sup porting Code Source(s) Document(s ) Hemoglobin 5.5 % Normal (applies to MEDGEN (St A1c/Hemoglobin. non-numeric [facility] total in Blood results) [facility], ) ID Date Data Source [id number] 03/28/2019 12:00:00 AM EDT [facility] ([facility], ) Name Value Range Interpretation Description Data Sup porting Code Source(s) Document(s ) Vitamin B12 508 pg/mL Normal (applies to MEDGEN (S t non-numeric [facility]'s results) [facility], ) Folate 9.7 ng/mL Normal (applies to MEDGEN (St (Folic non-numeric [facility] Acid), Serum results) [facility], ) ID Date Data Source [id number] 03/28/2019 12:00:00 AM EDT [facility] ([facility], ) Name Value Range Interpretation Description Data Sup porting Code Source(s) Document(s ) UIBC 347 ug/dL Normal (applies to MEDGEN (St non-numeric [facility] results) [facility], ) Iron 371 ug/dL Normal (applies to MEDGEN (St Bind.Cap.(TIBC non-numeric [facility]'s ) results) [facility], ) Iron 24 ug/dL Below low normal MEDGEN (St [Mass/volume] [facility] in Serum or [facility], ) Plasma Iron 6 % Below lower panic MEDGEN (St saturation limits [facility] [Mass [facility], ) Fraction] in Serum or Plasma ID Date Data Source [id number] 03/28/2019 12:00:00 AM EDT [facility] ([facility], ) Name Value Range Interpretation Description Data Sup porting Code Source(s) Document(s ) Cholesterol 187 Normal (applies MEDGEN (St [Mass/volume] in mg/dL to non-numeric [facility] Serum or Plasma results) [facility], ) HDL Cholesterol 50 mg/dL Normal (applies MEDGEN ( St to non-numeric [facility] results) Medical, PC) Triglyceride 99 mg/dL Normal (applies MEDGEN (St [Mass/volume] in to non-numeric [facility] Serum or Plasma results) Medical, PC) VLDL Cholesterol 20 mg/dL Normal (applies MEDGEN (St Shivani to non-numeric [facility] results) Medical, PC) LDL Cholesterol 117 Above high normal MED[facility] (St Calc mg/dL [facility], ) ID Date Data Source [id number] 03/28/2019 12:00:00 AM EDT [facility] ([facility], PC) Name Value Range Interpretation Description Data Sup porting Code Source(s) Document(s ) Glucose 107 Above high MEDGEN (St [Mass/volume] in mg/dL normal [facility] Urine collected for Medical, unspecified PC) duration Urea nitrogen 16 mg/dL Normal (applies MEDGEN (St [Mass/volume] in to non-numeric [facility] Serum or Plasma results) Medical, PC) eGFR If NonAfricn 92 Normal (applies MEDGEN (St Am mL/min/1 to non-numeric [facility] .73 results) Medical, PC) Creatinine 0.81 Normal (applies MEDGEN (St [Interpretation] in mg/dL to non-numeric [facility] s Urine results) Medical, PC) eGFR If Africn Am 106 Normal (applies MEDGEN (St mL/min/1 to non-numeric [facility] .73 results) Medical, PC) BUN/Creatinine 20 Normal (applies MEDGEN (S t [...] mmol/L normal [facility] Serum or Plasma Medical, PC) Calcium 8.8 Normal (applies MEDGEN (St [Moles/volume] in mg/dL to non-numeric [facility] Urine collected for results) Medical, unspecified ) duration Protein 6.7 g/dL Normal (applies MEDGEN (St [Mass/volume] in to non-numeric [facility] Serum or Plasma results) [facility], ) Globulin, Total 2.6 g/dL Normal (applies MEDGEN ( St to non-numeric [facility]'s results) [facility], ) Microalbumin 4.1 g/dL Normal (applies MEDGEN (St [Mass/time] in to non-numeric [facility] Urine collected for results) [facility], unspecified ) duration A/G Ratio 1.6 Normal (applies MEDGEN (St to non-numeric [facility]'s results) [facility], ) Bilirubin.total 0.6 Normal (applies MEDGEN ( St [Mass/volume] in mg/dL to non-numeric [facility] Serum or Plasma results) [facility], ) Aspartate 12 IU/L Normal (applies MEDGEN (St aminotransferase to non-numeric [facility]'s [Enzymatic results) Medical, activity/volume] in ) Serum or Plasma Alkaline 59 IU/L Normal (applies MEDGEN (St phosphatase to non-numeric [facility] [Enzymatic results) Medical, activity/volume] in ) Serum, Plasma or Blood Alanine 11 IU/L Normal (applies MEDGEN (St aminotransferase to non-numeric [facility] [Enzymatic results) Medical, activity/volume] in ) Serum or Plasma ID Date Data Source [id number] 03/28/2019 12:00:00 AM EDT MEDGEN (St [facility], ) Name Value Range Interpretation Description Data Sup porting Code Source(s) Document(s ) Leukocytes 5.3 Normal (applies MEDGEN (St [#/volume] in x10E3/uL to non-numeric [facility] Blood by results) [facility], ) Automated count Hemoglobin 9.4 g/dL Below low normal MEDGEN (St [Mass/volume] in [facility] Blood [facility], ) Erythrocytes 4.83 Normal (applies MEDGEN (St [#/volume] in x10E6/uL to non-numeric [facility] Blood by results) [facility], ) Automated count Hematocrit 31.0 % Below low normal MEDGEN (St [Volume [facility]'s Fraction] of [facility], ) Blood by Automated count MCV 64 fL Below low normal [facility] ([facility], ) MCH 19.5 pg Below low normal [facility] ([facility], ) MCHC 30.3 Below low normal MEDGEN (St g/dL [facility], ) RDW 20.0 % Above high normal [facility] ([facility], ) Neutrophils [#] 47 % Normal (applies MEDGEN ( St in Body fluid by to non-numeric [facility]'s Manual count results) [facility]) Platelets 329 Normal (applies MEDGEN (St [#/area] in x10E3/uL to non-numeric [facility] Blood by results) [facility], ) Microscopy high power field Lymphs 43 % Normal (applies MEDGEN (St to non-numeric [facility]'s results) [facility], ) Monocytes 7 % Normal (applies MEDGEN (St [#/volume] in to non-numeric [facility] Cord blood results) [facility]) Basos 1 % Normal (applies MEDGEN (St to non-numeric [facility]'s results) [facility]) Eos 2 % Normal (applies MEDGEN (St to non-numeric [facility] results) [facility], ) Neutrophils 2.5 Normal (applies MEDGEN (St (Absolute) x10E3/uL to non-numeric [facility] results) [facility], ) Lymphs 2.3 Normal (applies MEDGEN (St (Absolute) x10E3/uL to non-numeric [facility] results) [facility], ) Eos (Absolute) 0.1 Normal (applies MEDGEN (S t x10E3/uL to non-numeric [facility] results) [facility], ) Monocytes(Absolu 0.4 Normal (applies MEDGEN (St te) x10E3/uL to non-numeric [facility] results) [facility], ) Immature 0 % Normal (applies MEDGEN (St Granulocytes to non-numeric [facility]'s results) [facility], ) Baso (Absolute) 0.0 Normal (applies MEDGEN ( St x10E3/uL to non-numeric [facility] results) [facility], ) Immature Grans 0.0 Normal (applies MEDGEN (S t (Abs) x10E3/uL to non-numeric [facility] results) [facility], ) ID Date Data Source [id number] 08/09/2018 12:00:00 AM EST [facility] ([facility], ) Name Value Range Interpretation Description Data Sup porting Code Source(s) Document(s ) Vitamin D, 18.0 Below low normal MEDGEN (St 25-Hydroxy ng/mL [facility], ) ID Date Data Source [id number] 08/09/2018 12:00:00 AM EST [facility] ([facility], ) Name Value Range Interpretation Code Description Data Chantale rce(s) Supporting Document(s ) TSH 1.880 Normal (applies to MEDGEN (St uIU/mL non-numeric results) [facility]) ID Date Data Source [id number] 08/09/2018 12:00:00 AM EST [facility], ) Name Value Range Interpretation Description Data Sup porting Code Source(s) Document(s ) Vitamin B12 543 pg/mL Normal (applies to MEDGEN (S t non-numeric [facility]'s results) [facility], ) Folate 11.5 Normal (applies to MEDGEN (St (Folic ng/mL non-numeric [facility] Acid), Serum results) [facility], ) ID Date Data Source [id number] 08/09/2018 12:00:00 AM EST [facility], ) Name Value Range Interpretation Description Data Sup porting Code Source(s) Document(s ) Cholesterol 206 Above high normal MEDGEN (St [Mass/volume] in mg/dL [facility] Serum or Plasma [facility], ) HDL Cholesterol 58 mg/dL Normal (applies MEDGEN ( St to non-numeric Gabriel's results) [facility], ) Triglyceride 149 Normal (applies MEDGEN (St [Mass/volume] in mg/dL to non-numeric [facility] Serum or Plasma results) [facility], ) LDL Cholesterol 118 Above high normal MEDGEN (St Calc mg/dL [facility], ) VLDL Cholesterol 30 mg/dL Normal (applies MEDGEN (St Shivani to non-numeric [facility]'s results) [facility], ) ID Date Data Source [id number] 08/09/2018 12:00:00 AM EST MEDGEN ([facility], ) Name Value Range Interpretation Description Data Sup porting Code Source(s) Document(s ) Glucose 100 Above high MEDGEN (St [Mass/volume] in mg/dL normal [facility]'s Urine collected for Medical, unspecified PC) duration Urea nitrogen 16 mg/dL Normal (applies MEDGEN (St [Mass/volume] in to non-numeric [facility] Serum or Plasma results) Medical, PC) Creatinine 0.83 Normal (applies MEDGEN (St [Interpretation] in mg/dL to non-numeric Gabriel' s Urine results) Medical, PC) eGFR If Africn Am 103 Normal (applies [...] activity/volume] in ) Serum, Plasma or Blood Aspartate 18 IU/L Normal (applies MEDGEN (St aminotransferase to non-numeric [facility]'s [Enzymatic results) Medical, activity/volume] in ) Serum or Plasma Alanine 19 IU/L Normal (applies MEDGEN (St aminotransferase to non-numeric [facility]'s [Enzymatic results) Medical, activity/volume] in ) Serum or Plasma ID Date Data Source [id number] 08/09/2018 12:00:00 AM EST MEDGEN (St [facility], ) Name Value Range Interpretation Description Data Sup porting Code Source(s) Document(s ) Leukocytes 7.6 Normal (applies MEDGEN (St [#/volume] in x10E3/uL to non-numeric [facility] Blood by results) [facility]) Automated count Hemoglobin 9.1 g/dL Below low normal MEDGEN (St [Mass/volume] in [facility] Blood [facility]) Erythrocytes 4.74 Normal (applies MEDGEN (St [#/volume] in x10E6/uL to non-numeric [facility] Blood by results) [facility]) Automated count Hematocrit 30.1 % Below low normal MEDGEN (St [Volume Gabriel's Fraction] of [facility]) Blood by Automated count MCV 64 fL Below low normal MEDGEN ([facility]) MCH 19.2 pg Below low normal MEDGEN ([facility]) MCHC 30.2 Below low normal MEDGEN (St g/dL [facility]) Platelets 378 Normal (applies MEDGEN (St [#/area] in x10E3/uL to non-numeric [facility] Blood by results) [facility]) Microscopy high power field RDW 19.9 % Above high normal MEDGEN ([facility], ) Lymphs 40 % Normal (applies MEDGEN (St to non-numeric Gabriel's results) [facility]) Neutrophils [#] 46 % Normal (applies MEDGEN ( St in Body fluid by to non-numeric Gabriel's Manual count results) [facility]) Monocytes 9 % Normal (applies MEDGEN (St [#/volume] in to non-numeric Gabriel's Cord blood results) [facility]) Eos 5 % Normal (applies MEDGEN (St to non-numeric Gabriel's results) Medical, ) Basos 0 % Normal (applies MEDGEN (St to non-numeric Gabriel's results) Medical, ) Neutrophils 3.5 Normal (applies MEDGEN (St (Absolute) x10E3/uL to non-numeric Gabriel's results) Medical, ) Lymphs 3.1 Normal (applies MEDGEN (St (Absolute) [...] MEDGEN (St Granulocytes to non-numeric Gabriel's results) Medical, ) Immature Grans 0.0 Normal (applies MEDGEN (S t (Abs) x10E3/uL to non-numeric Gabriel's results) Medical, ) ID Date Data Source [id number] 04/06/2018 12:00:00 AM EDT MEDGEN ([facility], ) Name Value Range Interpretation Code Description Data Chantale rce(s) Supporting Document(s ) TSH 2.430 Normal (applies to MEDGEN (St uIU/mL non-numeric results) [facility], ) ID Date Data Source [id number] 04/06/2018 12:00:00 AM EDT MEDGEN ([facility], ) Name Value Range Interpretation Description Data Sup porting Code Source(s) Document(s ) Vitamin D, 17.0 Below low normal MEDGEN (St 25-Hydroxy ng/mL [facility], ) ID Date Data Source [id number] 04/06/2018 12:00:00 AM EDT MEDGEN ([facility], ) Name Value Range Interpretation Description Data Sup porting Code Source(s) Document(s ) Hemoglobin 5.4 % Normal (applies to MEDGEN (St A1c/Hemoglobin. non-numeric Gabriel's total in Blood results) Medical, ) ID Date Data Source [id number] 04/06/2018 12:00:00 AM EDT MEDGEN ([facility], ) Name Value Range Interpretation Description Data Sup porting Code Source(s) Document(s ) QuantiFERON Incubation Normal (applies MEDGEN (St Incubation performed. to non-numeric Gabriel's results) Medical, ) QuantiFERON-TB Positive Abnormal MEDGEN (St Gold Plus (applies to Gabriel's non-numeric Medical, results) ) ID Date Data Source [id number] 04/06/2018 12:00:00 AM EDT MEDGEN ([facility], ) Name Value Range Interpretation Description Data [...] results) Medical, ) ID Date Data Source [id number] 04/06/2018 12:00:00 AM EDT MEDGEN ([facility], ) Name Value Range Interpretation Description Data [...] high normal MEDGEN (St Calc mg/dL Gabriel[facility], ) ID Date Data Source [id number] 04/06/2018 12:00:00 AM EDT MEDGEN ([facility] Name Value Range Interpretation Description Data Sup [...] MEDGEN ( St to non-numeric Gabriel's results) [facility], ) Alkaline 58 IU/L Normal (applies MEDGEN (St phosphatase to non-numeric Gabriel's [Enzymatic results) Medical, activity/volume] in ) Serum, Plasma or Blood Bilirubin.total 0.3 Normal (applies MEDGEN ( St [Mass/volume] in mg/dL to non-numeric Gabriel's Serum or Plasma results) [facility], ) Aspartate 26 IU/L Normal (applies MEDGEN (St aminotransferase to non-numeric Gabriel's [Enzymatic results) Medical, activity/volume] in ) Serum or Plasma ID Date Data Source [id number] 04/06/2018 12:00:00 AM EDT MEDGEN ([facility], ) Name Value Range Interpretation Description Data Sup porting Code Source(s) Document(s ) Leukocytes 8.0 Normal (applies MEDGEN (St [#/volume] in x10E3/uL to non-numeric [facility] Blood by results) [facility], ) Automated count Erythrocytes 5.07 Normal (applies MEDGEN (St [#/volume] in x10E6/uL to non-numeric [facility] Blood by results) [facility], ) Automated count Hemoglobin 10.1 Below low normal MEDGEN (St [Mass/volume] in g/dL [facility] Blood [facility], ) Hematocrit 33.2 % Below low normal MEDGEN (St [Volume Gabriel's Fraction] of [facility], ) Blood by Automated count MCV 66 fL Below low normal MEDGEN ([facility], ) MCH 19.9 pg Below low normal MEDGEN ([facility], ) MCHC 30.4 Below low normal MEDGEN (St g/dL [facility], ) RDW 18.5 % Above high normal MEDGEN ([facility], ) Lymphs 46 % Normal (applies MEDGEN (St to non-numeric Gabriel's results) [facility], ) Neutrophils [#] 42 % Normal (applies MEDGEN ( St in Body fluid by to non-numeric Gabriel's Manual count results) [facility]) Platelets 382 Above high normal MEDGEN (St [#/area] in x10E3/uL [facility] Blood by [facility], ) Microscopy high power field Monocytes 6 % Normal (applies MEDGEN (St [#/volume] in to non-numeric [facility]'s Cord blood results) Medical, ) Eos 6 % Normal (applies MEDGEN (St to non-numeric Gabriel's results) Medical, ) Neutrophils 3.4 Normal (applies MEDGEN (St (Absolute) x10E3/uL to non-numeric Gabriel's results) Medical, ) Basos 0 % Normal (applies MEDGEN (St to non-numeric Gabriel's results) [facility], ) Lymphs 3.7 Above high normal MEDGEN (St (Absolute) x10E3/uL [facility], ) Monocytes(Absolu 0.5 Normal (applies MEDGEN (St te) x10E3/uL to non-numeric [facility] results) Medical, ) Baso (Absolute) 0.0 Normal (applies MEDGEN ( St x10E3/uL to non-numeric [facility]'s results) [facility], ) Eos (Absolute) 0.4 Normal (applies MEDGEN (S t x10E3/uL to non-numeric [facility] results) Medical, ) Immature 0 % Normal (applies MEDGEN (St Granulocytes to non-numeric Gabriel's results) [facility], ) Immature Grans 0.0 Normal (applies MEDGEN (S t (Abs) x10E3/uL to non-numeric [facility] results) [facility], ) Procedure Social History Code Duration Value Status Description Data Source(s ) Smoking 02/02/2020 non smoker no completed non smoker no MEDGEN ( St 12:00:00 AM EDT alcohol use alcohol use [facility], Educational Aide Educational Aide ) Smoking 02/02/2020 Unknown if ever completed Unknown if ever MEDG EN (St 12:00:00 AM EDT smoked smoked [facility] ) Smoking 07/04/2018 Denies Ever Smoked completed Denies Ever Smoke d [facility] 04:43:00 PM EST Medical C enter Smoking 07/04/2018 Denies Ever Smoked completed Denies Ever Smoke d [facility] 04:29:00 PM EST Medical C enter Vital Signs ID Date Data Source UNK Name Value Range Interpretation Code Description Data Source(s) Body mass index 30 kg/m2 30 kg/m2 MEDGEN (S t (BMI) [Ratio] [facility], ) Diastolic blood 84 mm[Hg] 84 mm[Hg] MEDGEN (S t pressure [facility]) Systolic blood 120 mm[Hg] 120 mm[Hg] MEDGEN ([facility]) Body weight 180 lb 180 lb MEDGEN ([facility]) Body height 65 in [facility]) Body mass index 30.9 kg/m2 30.9 kg/m2 MEDGEN (S t (BMI) [Ratio] [facility]) Diastolic blood 80 mm[Hg] 80 mm[Hg] MEDGEN (S t [facility]) Systolic blood 124 mm[Hg] 124 mm[Hg] MEDGEN ([facility]) Body weight 186 lb 186 lb MEDGEN ([facility]) Body height 65 in 65 in [facility] ([facility]) Heart rate 80 /min 80 /min MEDGEN ([facility]) Diastolic blood 80 mm[Hg] 80 mm[Hg] MEDGEN (S t [facility]) Systolic blood 128 mm[Hg] 128 mm[Hg] MEDGEN ([facility]) Body mass index 30.9 kg/m2 30.9 kg/m2 MEDGEN (S t (BMI) [Ratio] [facility]) Diastolic blood 80 mm[Hg] 80 mm[Hg] MEDGEN (S t [facility]) Systolic blood 128 mm[Hg] 128 mm[Hg] MEDGEN ([facility]) Body weight 186 lb 186 lb MEDGEN [...] Inhaled oxygen 100 % 100 % MEDGEN ([facility]) Body mass index 32.8 kg/m2 32.8 kg/m2 MEDGEN (S t (BMI) [Ratio] [facility]) Diastolic blood 73 mm[Hg] 73 mm[Hg] MEDGEN (S t [facility]) Systolic blood 112 mm[Hg] 112 mm[Hg] MEDGEN ([facility]) Body weight 197 lb 197 lb MEDGEN [...] Inhaled oxygen 96 % 96 % MEDGEN ([facility]) Body mass index 34.5 kg/m2 34.5 kg/m2 MEDGEN (S t (BMI) [Ratio] [facility]) Diastolic blood 69 mm[Hg] 69 mm[Hg] MEDGEN (S t [facility]) Systolic blood 96 mm[Hg] 96 mm[Hg] MEDGEN ([facility]) Body weight 214 lb 214 lb MEDGEN [...] (S t (BMI) [Ratio] [facility]) Diastolic blood 78 mm[Hg] 78 mm[Hg] MEDGEN (S t [facility]) Systolic blood 140 mm[Hg] 140 mm[Hg] MEDGEN ([facility]) Body weight 227 lb 227 lb MEDGEN ([facility]) Body height 66 in 66 in MEDGEN ([facility]) Respiratory rate 13 /min 13 /min MEDGEN ( [facility]) Body temperature 98.2 F 98.2 F MEDGEN ( [facility]) Body mass index 37 kg/m2 37 kg/m2 MEDGEN (S t (BMI) [Ratio] [facility]) Diastolic blood 78 mm[Hg] 78 mm[Hg] MEDGEN (S t pressure [facility]) Systolic blood 130 mm[Hg] 130 mm[Hg] MEDGEN ([facility]) Body weight 229 lb 229 lb MEDGEN [...] Inhaled oxygen 99 % 99 % MEDGEN ([facility]) Body mass index 37.1 kg/m2 37.1 kg/m2 MEDGEN (S t (BMI) [Ratio] [facility]) Diastolic blood 88 mm[Hg] 88 mm[Hg] MEDGEN (S [facility] [place] [place]) Systolic blood 143 mm[Hg] 143 mm[Hg] MEDGEN ([facility]) Body weight 230 lb 230 lb MEDGEN ([facility]) Body height 66 in 66 in MEDGEN ([facility]) Heart rate 76 /min 76 /min MEDGEN ([facility]) Respiratory rate 16 /min 16 /min MEDGEN ( [facility]) Inhaled oxygen 97 % 97 % MEDGEN ([facility]) Body mass index 40 kg/m2 40 kg/m2 MEDGEN (S t (BMI) [Ratio] [facility]) Diastolic blood 70 mm[Hg] 70 mm[Hg] MEDGEN (S t [facility]) Systolic blood 122 mm[Hg] 122 mm[Hg] MEDGEN ([facility]) Body weight 226 lb 226 lb MEDGEN ([facility]) Body height 63 in 63 in MEDGEN ([facility]) Body mass index 40.7 kg/m2 40.7 kg/m2 MEDGEN (S t (BMI) [Ratio] [facility]) Diastolic blood 70 mm[Hg] 70 mm[Hg] MEDGEN (S t [facility]) Systolic blood 122 mm[Hg] 122 mm[Hg] MEDGEN ([facility]) Body weight 230 lb 230 lb [facility] Body height 63 in 63 in [facility]) Body weight 102.478820 102.697156 kg [facility] Measured kg [facility] Center Body temperature 36.247148 36.533053 [facility] Respiratory rate 26 /min 26 /min [facility] Oxygen saturation 97 % 97 % [facility] in Arterial blood [facility] Center by Pulse oximetry Heart rate 88 /min 88 /min [facility] Body height 162.209001 162.638304 cm [facility] cm [facility] Diastolic blood 77 mm[Hg] 77 mm[Hg] [facility] pressure [facility] Center Systolic blood 132 mm[Hg] 132 mm[Hg] [facility] pressure [facility] Body mass index 38.5 kg/m2 38.5 kg/m2 [facility] (BMI) [Ratio] Medical [facility] Heart rate 76 /min 76 /min MEDGEN ([facility]) Respiratory rate 16 /min 16 /min MEDGEN ( [facility]) Inhaled oxygen 97 % 97 % MEDGEN ([facility]) Body mass index 40 kg/m2 40 kg/m2 MEDGEN (S t (BMI) [Ratio] [facility]) Diastolic blood 78 mm[Hg] 78 mm[Hg] MEDGEN (S [facility] [place]) Systolic blood 110 mm[Hg] 110 mm[Hg] MEDGEN ([facility]) Body weight 226 lb 226 lb MEDGEN ([facility]) Body height 63 in 63 in MEDGEN ([facility]) Heart rate 76 /min 76 /min MEDGEN ([facility]) Respiratory rate 16 /min 16 /min MEDGEN ( [facility]) Inhaled oxygen 97 % 97 % MEDGEN ([facility]) Body mass index 40 kg/m2 40 kg/m2 MEDGEN (S t (BMI) [Ratio] [facility]) Diastolic blood 78 mm[Hg] 78 mm[Hg] MEDGEN (S [facility] [place]) Systolic blood 110 mm[Hg] 110 mm[Hg] MEDGEN ([facility]) Body weight 226 lb 226 lb [facility] ([facility]) Body height 63 in 63 in [facility] ([facility]) Patient Treatment Plan of Care Planned Activity Planned Date Details Description Data Source (s) Prednisone 20 MG Oral [facility] Zolpidem tartrate 5 MG Oral [facility] Center 200 ACTUAT Albuterol 0.09 Sa [facility] MG/ACTUAT Metered Dose Cente r Inhaler [ProAir] isoniazid 300 MG Oral [facility] fluticasone 50 [facility] mcg/actuation Center spray,suspension 14 ACTUAT Fluticasone [facility] propionate 0.25 MG/ACTUAT / Center salmeterol 0.05 MG/ACTUAT Dry Powder Inhaler [Advair]
[2020-03-12] MEDS ORDERED: PROPOFOL 20 ML ONE ×12 (08:06→08:07)
[2020-03-12] MEDS ORDERED: MIDAZOLAM HCL 2 MG/2 ML SINGLE DOSE VIAL ONE ×2 (08:11→08:20)
--- NOTE | 2020-03-12 08:49 | OP ---
Operative Note - Note: Operative Date: 03/12/20 Pre-Operative Diagnosis: Right renal stone Operation: Right ESWL Findings: 6 mm mid pole right renal stone Post-Operative Diagnosis: Same as Pre-op Surgeon: Jason Lopez Anesthesia: Regional Estimated Blood Loss (mls): 0 Operative Report Dictated: Yes
[2020-03-12 10:30] VITALS: BP 100/50; PULSE 81; TEMP 97.9
--- NOTE | 2020-03-12 12:43 | OP ---
DATE OF OPERATION: 03/12/2020 PREOPERATIVE DIAGNOSIS: Right renal stone. POSTOPERATIVE DIAGNOSIS: Right renal stone. PROCEDURE: Right extracorporeal shock wave lithotripsy. ATTENDING: Geena Lopez MD ANESTHESIA: Fractional. OPERATION: Patient was brought into the operating room, placed in a supine position on the operating room table. Ultrasonography and fluoroscopy were performed. A 6-mm right midpole stone was identified. At this point anesthesia was administered as well as antibiotics. Shock wave lithotripsy was then started; 2500 impulses at 17 joules of power were administered to the stone with excellent fragmentation of the stone under real-time ultrasonography and fluoroscopy. No complications were noted. Patient tolerated the procedure very well. The disposition of the patient was to the recovery room. GEENA VELASQUEZ M.D. [id number]
== END 2020-03-12 10:31 | disposition home or self-care (01) ==
LOC: JASU-SURG 04:54
PROVIDERS: ATTEND Urology
PROC: 0TF3XZZ Fragmentation in Right Kidney Pelvis, External Approach (ICD-10-PCS; principal; 2020-03-12 08:17)
DX: N20.0 Calculus of kidney (principal)
CPT/HCPCS: 84703

== ENCOUNTER 2022-03-15 01:19 | Emergency (ER) | payer OTHER ==
[2022-03-15 01:38] VITALS: BP 146/85; PULSE 95; RESP 20; TEMP 98.4; BMI 32.5
[2022-03-15 02:42] LABS: EPI CELLS >36 /uL (0-25.1); HYALINE CASTS 4 /uL (0-3.1); PH,URINE 5.5 (5.0-8.0); URINE APPEARANCE CLOUDY; URINE BACTERIA 858 /uL (0-1359); URINE BILIRUBIN NEGATIVE (NEGATIVE); URINE COLOR YELLOW; URINE GLUCOSE (UA) NEGATIVE (NEGATIVE); URINE KETONE TRACE (NEGATIVE); URINE LEUK ESTERASE 1+ (NEGATIVE); URINE NITRITE NEGATIVE (NEGATIVE); URINE PROTEIN TRACE (NEGATIVE); URINE RBC 6 /uL (0-23.9); URINE UROBILINOGEN 0.2 mg/dL (0.2-1.0); URINE WBC 69 /uL (0-25.8)
[2022-03-15] MEDS ORDERED: KETOROLAC TROMETHAMINE 30 MG/1 ML VIAL IM ONE (02:44)
[2022-03-15] MEDS ORDERED: KETOROLAC TROMETHAMINE 30 MG/1 ML VIAL ONE (02:46)
== END 2022-03-15 03:23 | disposition home or self-care (01) ==
LOC: JER 01:19
PROC: 3E0233Z Introduction of Anti-inflammatory into Muscle, Percutaneous Approach (ICD-10-PCS; principal; 2022-03-15)
DX: N10 Acute pyelonephritis (principal)
CPT/HCPCS: 81003; 87077; 87086; 87186; 99284-25

== ENCOUNTER 2022-08-25 15:54 | Day surgery (SDC) | payer OTHER ==
[2022-08-25 16:21] VITALS: PULSE 80; RESP 18; TEMP 98.5
[2022-08-25] MEDS ORDERED: FERRIC CARBOXYMALTOSE 750 MG in SODIUM CHLORIDE 250 ML IVPB ONE (16:30)
[2022-08-25 17:35] VITALS: BP 110/80
== END 2022-08-25 17:15 | disposition home or self-care (01) ==
LOC: FINFUSION 15:54 → FM/S 15:55 → FINFUSION 17:15
PROVIDERS: ATTEND Family Medicine
PROC: 3E033GC Introduction of Other Therapeutic Substance into Peripheral Vein, Percutaneous Approach (ICD-10-PCS; principal; 2022-08-25)
DX: D50.9 Iron deficiency anemia, unspecified (principal)
CPT/HCPCS: 96365; J1439

== ENCOUNTER 2022-09-01 09:17 | Day surgery (SDC) | payer OTHER ==
[2022-09-01] MEDS ORDERED: FERRIC CARBOXYMALTOSE 750 MG in SODIUM CHLORIDE 250 ML IVPB ONE (09:45)
[2022-09-01 11:11] VITALS: BP 107/74; PULSE 69; RESP 18; TEMP 98.1
== END 2022-09-01 11:17 | disposition home or self-care (01) ==
LOC: FINFUSION 09:17 → FM/S 09:18 → FINFUSION 11:17
PROVIDERS: ATTEND Family Medicine
PROC: 3E033GC Introduction of Other Therapeutic Substance into Peripheral Vein, Percutaneous Approach (ICD-10-PCS; principal; 2022-09-01)
DX: D50.9 Iron deficiency anemia, unspecified (principal)
CPT/HCPCS: 96365; J1439

== ENCOUNTER → 2023-03-24 | Day surgery (SDC) | payer OTHER | END | disposition home or self-care (01) | LOC: JRADIR 10:17 | PROVIDERS: ATTEND Obstetrics & Gynecology Reproductive Endocrinology | PROC: BU18YZZ Fluoroscopy of Uterus and Fallopian Tubes using Other Contrast (ICD-10-PCS; principal; 2023-03-24) | DX: N97.9 Female infertility, unspecified (principal); D25.9 Leiomyoma of uterus, unspecified; N83.291 Other ovarian cyst, right side | CPT/HCPCS: 76831; 84703 ==

== ENCOUNTER 2023-09-23 04:17 | Day surgery (SDC) | payer OTHER ==
[2023-09-22 10:11] VITALS: BMI 32.5
[2023-09-23] MEDS ORDERED: ACETAMINOPHEN 500 MG TABLET (FP) ONE (06:09)
[2023-09-23] MEDS ORDERED: GABAPENTIN 300 MG CAPSULE ONE (06:09)
[2023-09-23] MEDS ORDERED: ceFAZolin SODIUM 1 GM VIAL ONE (06:30)
[2023-09-23] MEDS: GABAPENTIN 300 MG CAPSULE PO ONE (06:41)
[2023-09-23] MEDS: ACETAMINOPHEN 500 MG TABLET (FP) PO ONE (06:42)
[2023-09-23] MEDS ORDERED: BUPIVACAINE HCL/PF 0.5% (5MG/ML) 10 ML VIAL ONE (07:16)
[2023-09-23] MEDS ORDERED: LIDOCAINE HCL 1%, 10 MG/ML (20ML VIAL) ONE (07:16)
[2023-09-23] MEDS ORDERED: CEFAZOLIN 2 GM in DEXTROSE 5%-WATER - 100 ML IVPB ONE (08:00)
[2023-09-23] MEDS ORDERED: PROPOFOL 20 ML ONE (08:01)
[2023-09-23] MEDS ORDERED: ROCURONIUM BROMIDE 50 MG/5 ML SYRINGE ONE (08:01)
[2023-09-23] MEDS ORDERED: FENTANYL CITRATE/PF 50 MCG/ML VIAL ONE ×5 (08:01→12:14)
[2023-09-23] MEDS ORDERED: HYDROmorphone HCl 2 MG/ML VIAL ONE (08:01)
[2023-09-23] MEDS ORDERED: MIDAZOLAM HCL 2 MG/2 ML SINGLE DOSE VIAL ONE (08:01)
[2023-09-23] MEDS: CLINDAMYCIN 900 MG PREMIX BAG IVPB ONE (08:36)
[2023-09-23] MEDS: BUPIVACAINE HCL/PF 0.5% (5MG/ML) 10 ML VIAL IJ ONE (09:00)
[2023-09-23] MEDS ORDERED: NEOSTIGMINE METHYLSULFATE 0.5 MG/1 ML - 10 ML MDV ONE (10:58)
[2023-09-23] MEDS ORDERED: ALBUTEROL SO4 HFA INHALER IH PRN ×2 (11:26→13:46)
[2023-09-23] MEDS ORDERED: IBUPROFEN 200 MG TABLET PO PRN (11:26)
[2023-09-23] MEDS ORDERED: PATIENT'S OWN MEDICATION (NON-FORMULARY) (Levocetirizine Dihydrochloride [Xyzal] 5 MG Tabl PO SCH (11:30)
[2023-09-23] MEDS ORDERED: PATIENT'S OWN MEDICATION (NON-FORMULARY) (Budesonide/Glycopyr/Formoterol [Breztri Aerosphe IH SCH (11:30)
[2023-09-23] MEDS ORDERED: ONDANSETRON 4 MG/2 ML VIAL IVPUSH PRN (11:47)
[2023-09-23] MEDS: ACETAMINOPHEN 1000 MG/100 ML BAG IVPB ONE (12:59)
[2023-09-23] MEDS: LACTATED RINGERS SOLUTION 1,000 ML IV SCH (13:19)
[2023-09-23] MEDS: oxyCODONE HCL 5 MG TABLET PO PRN (15:33)
[2023-09-23] MEDS: ACETAMINOPHEN 325 MG TABLET (FP) PO PRN (15:33)
[2023-09-23 17:37] VITALS: RESP 20
[2023-09-23] MEDS: CLINDAMYCIN 300 MG PREMIX IVPB 300 MG/50 ML BAG IVPB SCH (18:34)
[2023-09-24] MEDS: oxyCODONE HCL 5 MG TABLET PO PRN (01:59)
[2023-09-24] MEDS: IBUPROFEN 400 MG TABLET (FP) PO PRN (04:21)
[2023-09-24] MEDS: ASCORBIC ACID 500 MG TABLET (FP) PO SCH (09:12)
[2023-09-24] MEDS: ENOXAPARIN NA (PORCINE) 40 MG/0.4 ML DISP.SYRIN SQ SCH (09:12)
[2023-09-24] MEDS: PRENATAL VITAMINS W/ FOLIC ACID TABLET (FP) PO SCH (09:57)
[2023-09-24 12:15] VITALS: BP 120/71; PULSE 87; TEMP 98.4
== END 2023-09-24 09:58 | disposition home or self-care (01) ==
LOC: JASUSAT 04:17 → JASU-SURG 04:17 → J8W 13:37 → JASUSAT 09-24 09:58
PROVIDERS: ATTEND Specialist
PROC: 0UJ34ZZ Inspection of Ovary, Percutaneous Endoscopic Approach (ICD-10-PCS; 2023-09-23)
PROC: 0JQC0ZZ Repair Pelvic Region Subcutaneous Tissue and Fascia, Open Approach (ICD-10-PCS; principal; 2023-09-23 08:00)
PROC: 8E0W0CZ Robotic Assisted Procedure of Trunk Region, Open Approach (ICD-10-PCS; 2023-09-23 08:00)
DX: D25.9 Leiomyoma of uterus, unspecified (principal); N92.1 Excessive and frequent menstruation with irregular cycle; N83.201 Unspecified ovarian cyst, right side; N81.5 Vaginal enterocele
CPT/HCPCS: 81025; 86850; 86900; 86901; 88302-TC; 88305-TC; 94760

== ENCOUNTER 2023-11-02 11:00 | Day surgery (SDC) | payer OTHER ==
[2023-11-02] MEDS: FERRIC CARBOXYMALTOSE 750 MG in SODIUM CHLORIDE 250 ML IVPB ONE (11:36)
[2023-11-02 12:39] VITALS: BP 105/67; PULSE 71; RESP 16; TEMP 98.3
== END 2023-11-02 12:39 | disposition home or self-care (01) ==
LOC: FINFUSION 11:00 → FM/S 11:01 → FINFUSION 12:39
PROVIDERS: ATTEND Family Medicine
PROC: 3E033GC Introduction of Other Therapeutic Substance into Peripheral Vein, Percutaneous Approach (ICD-10-PCS; principal; 2023-11-02)
DX: D50.0 Iron deficiency anemia secondary to blood loss (chronic) (principal)
CPT/HCPCS: 96365; J1439